=== PATIENT | male | born 1940 | race Caucasian/White ===

== ENCOUNTER 2016-08-15 17:15 | Inpatient (IN) | payer OTHER ==
[2016-08-15] MEDS ORDERED: LEVAQUIN PREMIX IV 250 MG 250 MG/50 ML BAG IV SCH (18:15)
[2016-08-15 20:20] LABS: BASOPHILS % (AUTO) 0.6 % (0.2-1.0); EOSINOPHILS % (AUTO) 0.2 % (0.9-2.9); HEMATOCRIT 29.3 % (42.0-54.0); HEMOGLOBIN 9.3 g/dL (13.5-18.0); LYMPHOCYTES # (AUTO) 0.3 X10^3/uL (1.3-2.9); LYMPHOCYTES % (AUTO) 4.6 % (21.0-51.0); MEAN CORPUSCULAR HEMOGLOBIN 29.3 pg (27.0-34.0); MEAN CORPUSCULAR HGB CONC 31.9 g/dL (33.0-35.0); MEAN CORPUSCULAR VOLUME 91.8 fL (80.0-100.0); MEAN PLATELET VOLUME 8.4 fL (7.4-11.0); MONOCYTES # (AUTO) 0.2 x10^3/uL (0.3-0.8); MONOCYTES % (AUTO) 3.2 % (0.0-13.0); NEUTROPHILS # (AUTO) 6.3 x10^3/uL (2.2-4.8); NEUTROPHILS % (AUTO) 91.4 % (42.0-75.0); PLATELET COUNT 184 X10^3/uL (150.0-450.0); RED BLOOD COUNT 3.19 X10^6/uL (4.7-6.0); RED CELL DISTRIBUTION WIDTH 19.5 % (11.6-16.5); WHITE BLOOD COUNT 6.9 X10^3/uL (3.6-10.0)
[2016-08-15 20:22] LABS: CALCIUM 8.8 mg/dL (8.5-10.1); CARBON DIOXIDE 39.3 mmol/L (21-32); CREATININE 2.78 mg/dL (0.70-1.30)
--- NOTE | 2016-08-15 21:00 | RAD ---
HISTORY: COPD Study: Portable AP chest Comparison: 06/13/2016 Findings: The trachea is midline. The cardiac silhouette is unremarkable. The pulmonary vessels are slightly ill-defined and engorged centrally and more prominent . The lungs are hypoinflated and there is haz y perihilar and bibasilar interstitial prominence which has increased. No effusion or large consolid ation is seen. IMPRESSION: Hypoinflation with mild pulmonary edema which is more prominent. Reported By:
[2016-08-15 21:03] LABS: ANISOCYTOSIS 1+; BAND NEUTROPHILS % 10 % (0-10); HYPOCHROMASIA SLIGHT; PLATELET MORPHOLOGY COMMENT NORMAL (NORMAL)
[2016-08-15] MEDS ORDERED: LANTISEPTIC TOP PRN (21:33)
[2016-08-15] MEDS ORDERED: SYNTHROID 125 mcg TAB PO SCH (22:00)
[2016-08-15] MEDS: DUONEB 0.5 MG/3 MG NEB SCH (22:00)
[2016-08-15 22:10] LABS: ABG BASE EXCESS 16.9 mmol/L (-2.0-2.0)
[2016-08-15 22:11] LABS: ABG HCO3 44.8 mmol/L (22-26); FRACTIONATED INSPIRED OXYGEN 30
[2016-08-15] MEDS: NS 500 ML IV 500 ML IV SCH (22:24)
[2016-08-15] MEDS: BUTT CREAM (COMPOUND) TOP PRN (22:33)
[2016-08-15 23:15] LABS: BILIRUBIN,URINE NEGATIVE (NEGATIVE); BLOOD/HEMOGLOBIN,URINE NEGATIVE (NEGATIVE); GLUCOSE, URINE NEGATIVE (NEGATIVE); KETONES,URINE NEGATIVE (NEGATIVE); LEUKOCYTE ESTERASE ,URINE NEGATIVE (NEGATIVE); NITRITES,URINE NEGATIVE (NEGATIVE); PROTEIN,URINE 1+ (NEGATIVE); UROBILINOGEN,URINE NORMAL (NORMAL)
[2016-08-15 23:21] VITALS: BMI 22.4
[2016-08-15 23:29] LABS: AMORPHOUS SEDIMENT,UR 1+ /HPF (NEGATIVE); APPEARANCE,URINE CLEAR (CLEAR); BACTERIA,URINE TRACE /HPF (NEGATIVE); COLOR,URINE YELLOW (YELLOW); RBC,URINE 0-3 /HPF (NEGATIVE); SQUAMOUS EPITHELIAL CELL,UR RARE /HPF (NEGATIVE)
[2016-08-16] MEDS: DUONEB 0.5 MG/3 MG NEB SCH ×6 (01:42→21:23)
[2016-08-16 06:23] LABS: BASOPHILS % (AUTO) 0.6 % (0.2-1.0); EOSINOPHILS # (AUTO) 0.1 x10^3/uL (0.0-0.2); EOSINOPHILS % (AUTO) 1.5 % (0.9-2.9); HEMATOCRIT 26.8 % (42.0-54.0); HEMOGLOBIN 8.7 g/dL (13.5-18.0); LYMPHOCYTES # (AUTO) 0.7 X10^3/uL (1.3-2.9); LYMPHOCYTES % (AUTO) 10.7 % (21.0-51.0); MEAN CORPUSCULAR HEMOGLOBIN 29.7 pg (27.0-34.0); MEAN CORPUSCULAR HGB CONC 32.7 g/dL (33.0-35.0); MEAN CORPUSCULAR VOLUME 90.8 fL (80.0-100.0); MEAN PLATELET VOLUME 8.9 fL (7.4-11.0); MONOCYTES # (AUTO) 0.7 x10^3/uL (0.3-0.8); MONOCYTES % (AUTO) 10.8 % (0.0-13.0); NEUTROPHILS # (AUTO) 4.9 x10^3/uL (2.2-4.8); NEUTROPHILS % (AUTO) 76.4 % (42.0-75.0); PLATELET COUNT 184 X10^3/uL (150.0-450.0); RED BLOOD COUNT 2.95 X10^6/uL (4.7-6.0); RED CELL DISTRIBUTION WIDTH 19.8 % (11.6-16.5); WHITE BLOOD COUNT 6.5 X10^3/uL (3.6-10.0)
[2016-08-16 06:35] LABS: BLOOD UREA NITROGEN 100 mg/dL (7-18); CALCIUM 8.8 mg/dL (8.5-10.1); CARBON DIOXIDE 37.6 mmol/L (21-32); CHLORIDE 106 mmol/L (98-107); CREATININE 2.85 mg/dL (0.70-1.30); GLUCOSE 109 mg/dL (65-99); SODIUM 149 mmol/L (136-145); eGFR BLACK RACES 28 (>60); eGFR NON BLACK RACES 23 (>60)
--- NOTE | 2016-08-16 07:56 | RAD ---
Chest AP portable Indication: Acute respiratory failure. Comparison: Previous day's radiograph. Findings: There is cardiomegaly with patchy pulmonary opacities in the left midlung and lower lobes. No pneumothorax seen. Small effusions may be present. Impression: Findings suggest CHF, similar to the prior. Developing pneumonia is possible. Followup t o resolution. Reported By:
[2016-08-16] MEDS: BUTT CREAM (COMPOUND) TOP PRN ×3 (08:30→14:10)
[2016-08-16] MEDS ORDERED: [UNRECOGNIZED DRUG - OTHER] PO PRN (10:19)
[2016-08-16] MEDS ORDERED: LIDODERM 5% PATCH TD PRN (10:19)
[2016-08-16] MEDS ORDERED: TOBREX DROPS EACHEYE PRN (10:19)
[2016-08-16] MEDS ORDERED: MILK OF MAGNESIA PEG PRN (10:19)
[2016-08-16] MEDS ORDERED: LANTISEPTIC TOP PRN (10:19)
[2016-08-16] MEDS ORDERED: INSULIN DETEMIR SUBCUT SCH (10:30)
[2016-08-16] MEDS ORDERED: [UNRECOGNIZED DRUG - REMARK] ENOSTRIL SCH (10:30)
[2016-08-16] MEDS ORDERED: LACTINEX GRANULES PEG SCH (11:00)
[2016-08-16] MEDS ORDERED: LEVEMIR SC SCH (11:00)
[2016-08-16] MEDS ORDERED: NS 1/2 1000 ML IV 1,000 ML IV SCH (11:00)
[2016-08-16] MEDS ORDERED: PREDNISONE TAB 20 MG PO SCH (11:00)
[2016-08-16] MEDS ORDERED: MERREM VIAL 500 MG in NS 100 ML IV + SPIKE MINIBAG* 100 ML IV SCH ×4 (11:00)
[2016-08-16] MEDS: PREDNISONE TAB 5 MG PO SCH (11:27)
[2016-08-16] MEDS: NICODERM PATCH 21 MG/24 HR TD SCH (11:28)
[2016-08-16] MEDS: SOLU-Medrol 40 MG VIAL IVP SCH ×3 (11:28→23:00)
[2016-08-16] MEDS: LASIX IVP SCH ×2 (11:28→22:48)
[2016-08-16] MEDS: PEPCID TAB 20 MG PEG SCH (11:28)
[2016-08-16] MEDS: PROSCAR PO SCH (11:28)
[2016-08-16] MEDS: [UNRECOGNIZED DRUG - OTHER] PEG SCH ×2 (11:29→22:52)
[2016-08-16] MEDS: DIFLUCAN PEG SCH (11:30)
[2016-08-16] MEDS: BACTROBAN CREAM TOP SCH ×2 (11:30→22:50)
[2016-08-16] MEDS: ASPIRIN EC 81 MG PO SCH (11:30)
[2016-08-16] MEDS ORDERED: NS 1/2 1000 ML IV 1,000 ML IV ONE (11:32)
[2016-08-16] MEDS ORDERED: MAXIPIME IV ONE (12:04)
[2016-08-16] MEDS ORDERED: NS IV ONE (12:04)
[2016-08-16] MEDS: CHECK PATCH XX SCH ×2 (12:20→22:50)
[2016-08-16] MEDS ORDERED: MAXIPIME VIAL 1 GM ONE (12:33)
[2016-08-16] MEDS ORDERED: NS 50 ML IV 50 ML IV ONE (12:35)
--- NOTE | 2016-08-16 15:28 | DR.H&P ---
H&P - History & Physical for Day of: H&P Date: 08/15/16 - Chief Complaint Chief Complaint: AMS, SOB - Allergies Allergies/Adverse Reactions: Allergies Allergy/AdvReac Type Severity Reaction Status Date / Time Budesonide [From Symbicort] Allergy Verified 04/11/16 13:00 Cefdinir Allergy Verified 04/11/16 13:00 Celecoxib [From Celebrex] Allergy Verified 04/11/16 13:00 Erythromycin Allergy Verified 04/11/16 13:00 Finasteride [From Proscar] Allergy Verified 04/11/16 13:00 Formoterol [From Symbicort] Allergy Verified 04/11/16 13:00 Glimepiride [From Amaryl] Allergy Verified 04/11/16 13:00 Hydroxychloroquine Allergy Verified 04/11/16 13:00 [From Plaquenil] Hyoscyamine [From Uroblue] Allergy Verified 04/11/16 13:00 Immune Globulin Allergy Verified 04/11/16 13:00 [From Gammagard] Leflunomide [From Arava] Allergy Verified 04/11/16 13:00 Lidocaine Allergy Verified 04/11/16 13:03 Losartan Allergy Verified 04/11/16 13:00 Methenamine [From Uroblue] Allergy Verified 04/11/16 13:00 Minocycline Allergy Verified 04/11/16 13:00 Penicillins Allergy Verified 04/11/16 13:00 Phenylsalicylate Allergy Verified 04/11/16 13:00 [From Uroblue] Pregabalin [From Lyrica] Allergy Verified 04/11/16 13:00 Pseudoephedrine Allergy Verified 04/11/16 13:00 Rofecoxib [From Vioxx] Allergy Verified 04/11/16 13:00 Sertraline [From Zoloft] Allergy Verified 04/11/16 13:00 Sodium Phosphate Allergy Verified 04/11/16 13:00 [From Uroblue] Spironolactone Allergy Verified 04/11/16 13:00 Sulfa Antibiotics Allergy Verified 04/11/16 13:00 - History of Present Illness History of Present Illness: PPATIENT IS A 76-YEAR-OLD WHITE MALE WHO WAS A DIRECT ADMIT FROM [facility]. 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 pATIENT IS BEDBOUND AND TOTAL CARE WITH RECURRING RESPIRATORY INFECTIONS. pATIENT'S SPOUSE STATED HE HAD DECREASED MENTAL STATUS AND INCREASED RESPIRATORY DISTRESS WORSENING OVER THE LAST 24 HOURS. pLAN TO ADMIT TO icu FOR FURTHER EVALUATION OF INCREASED SHORTNESS OF BREATH, CHEST CONGESTION, RESPIRATORY DISTRESS, ALTERED MENTAL STATUS - Past Medical History Past Medical History: Arthritis, Hypertension, Renal Disease Additional Medical History: demyelinating neurological disorder - Past Surgical History Surgical History: Cholecystectomy, Joint Replacement, Ortho Surgery Additional Surgical History: PEG Tube - Family History Family Medical History: Diabetes Mellitus, NE, Sudden Cardiac - Social History Does patient currently use any type of tobacco product: No Have you used tobacco products in the last 12 months: No Type of Tobacco Use: None Does any household member use tobacco: No Alcohol Use: None - Medications Home Medications: Famotidine [Famotidine 20 mg] 20 mg PEG DAILY 08/15/16 [History Confirmed ] Furosemide [Lasix] 40 mg PO BID 08/15/16 [History Confirmed 08/15/16] Levothyroxine Sodium [SYNTHROID 125 mcg *] 125 mcg PEG DAILY 08/15/16 [History Confirmed 08/16/16] Skin Protectants, Misc. [LANTISEPTIC OINT *] 1 applic TOP DAILY PRN 08/15/16 [ History Confirmed 08/15/16] Aspirin [[place] Low Dose] 81 mg PO DAILY 08/16/16 [History Confirmed 08/16/16] Fluconazole [Diflucan] 100 mg PEG DAILY 08/16/16 [History Confirmed 08/15/16] Mouthwashes [Biotene Dry Mouth Mouthwa] 1 applic PO PRN PRN 08/16/16 [History Confirmed 08/16/16] Potassium Chloride Liq [POTASSIUM CHLORIDE LIQ 20 mEQ/15 mL *] 20 meq PEG DAILY PRN 08/16/16 [History Confirmed 08/16/16] Scopolamine [TRANSDERM-SCOP PATCH - Do NOT cut *] 1 patch TD .Q 72 HRS 08/16/16 [History Confirmed 08/16/16] - Review of Systems Constitutional: Weakness Eyes: No Symptoms Reported ENT: No Symptoms Reported Respiratory: Cough, Shortness of Breath, Sputum Cardiovascular: No Symptoms Reported Gastrointestinal: No Symptoms Reported, Other (jg tube) Musculoskeletal: No Symptoms Reported Skin: Bruising (multiple scattered bruising to upper arms) Neurological: Weakness - Physical Exam Vital Signs: Temperature 97.0 F Pulse Rate [Apical] 87 Pulse Rate 89 Respiratory Rate 28 Blood Pressure [Left Calf] 88/42 Blood Pressure [Right Calf] 109/72 Blood Pressure [Left Arm] 90/71 Blood Pressure [Right Arm] 108/55 Blood Pressure 90/71 O2 Sat by Pulse Oximetry 95 Oriented: Person Eyes: Normal Ear: Normal Nose: Normal Throat: Normal Respiratory: Diminished Throughout Cardiovascular: Normal : Normal Auscultation: Bowel Sounds: Normal Palpation: Normal Tenderness: Normal Skin: Decreased Turgur Musculoskeletal: Normal Speech Pattern: Aphasic - Assessment/Plan (1) Respiratory distress Status: Acute Plan: ADMIT, IV HYDRATION, IV LASIX, RESP THERAPY. EKG MONTORING. 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
[2016-08-16] MEDS ORDERED: SYNTHROID 112 mcg TAB PO SCH (16:30)
[2016-08-16] MEDS: SYNTHROID 125 mcg TAB PEG SCH ×2 (21:35→22:52)
[2016-08-17] MEDS: DUONEB 0.5 MG/3 MG NEB SCH ×6 (01:09→20:36)
[2016-08-17] MEDS: SOLU-Medrol 40 MG VIAL IVP SCH ×3 (02:16→17:04)
[2016-08-17] MEDS: NS 500 ML IV 500 ML IV SCH (02:17)
[2016-08-17 06:03] LABS: BASOPHILS % (AUTO) 0.5 % (0.2-1.0); EOSINOPHILS # (AUTO) 0.1 x10^3/uL (0.0-0.2); EOSINOPHILS % (AUTO) 1.4 % (0.9-2.9); HEMATOCRIT 25.5 % (42.0-54.0); HEMOGLOBIN 8.5 g/dL (13.5-18.0); LYMPHOCYTES # (AUTO) 0.5 X10^3/uL (1.3-2.9); LYMPHOCYTES % (AUTO) 6.4 % (21.0-51.0); MEAN CORPUSCULAR HEMOGLOBIN 30.5 pg (27.0-34.0); MEAN CORPUSCULAR HGB CONC 33.1 g/dL (33.0-35.0); MEAN PLATELET VOLUME 8.7 fL (7.4-11.0); MONOCYTES # (AUTO) 0.7 x10^3/uL (0.3-0.8); MONOCYTES % (AUTO) 8.5 % (0.0-13.0); NEUTROPHILS # (AUTO) 6.7 x10^3/uL (2.2-4.8); NEUTROPHILS % (AUTO) 83.2 % (42.0-75.0); PLATELET COUNT 185 X10^3/uL (150.0-450.0); RED BLOOD COUNT 2.78 X10^6/uL (4.7-6.0); RED CELL DISTRIBUTION WIDTH 19.6 % (11.6-16.5); WHITE BLOOD COUNT 8.1 X10^3/uL (3.6-10.0)
[2016-08-17 06:06] LABS: ALBUMIN 2.4 g/dL (3.4-5.0); CALCIUM 8.7 mg/dL (8.5-10.1); CARBON DIOXIDE 34.1 mmol/L (21-32); CREATININE 3.03 mg/dL (0.70-1.30); TOTAL PROTEIN 6.9 g/dL (6.4-8.2)
--- NOTE | 2016-08-17 07:48 | RAD ---
HISTORY: CHF, pneumonia Study: Single-view chest Comparison: August 16, 2016 Findings: The trachea is midline. The cardiac silhouette is enlarged in size. There has been no significant change and central pulmonary vascular congestion. Increased interstitial markings bilaterally could reflect mild interstitial edema. There is suggestion of small volume bibasilar pleural effusions as well. A developing left basilar infiltrate is suspected and not significantly changed from prior exa m. The bony thorax is grossly intact. IMPRESSION: 1. Unchanged appearance of the chest as above Reported By:
[2016-08-17] MEDS: LASIX IVP SCH (08:40)
[2016-08-17] MEDS: PREDNISONE TAB 5 MG PO SCH (08:40)
[2016-08-17] MEDS: NICODERM PATCH 21 MG/24 HR TD SCH (08:41)
[2016-08-17] MEDS: PEPCID TAB 20 MG PEG SCH (08:41)
[2016-08-17] MEDS: PROSCAR PO SCH (08:41)
[2016-08-17] MEDS: ASPIRIN EC 81 MG PO SCH (09:19)
[2016-08-17] MEDS: DIFLUCAN PEG SCH (09:20)
[2016-08-17] MEDS: [UNRECOGNIZED DRUG - OTHER] PEG SCH (09:20)
[2016-08-17] MEDS: BACTROBAN CREAM TOP SCH ×2 (09:20→21:00)
[2016-08-17] MEDS: CHECK PATCH XX SCH ×2 (11:49→21:00)
[2016-08-17] MEDS: LACTINEX GRANULES PEG SCH (15:57)
[2016-08-17] MEDS ORDERED: NS 1000 ML 1,000 ML ONE (17:55)
[2016-08-17] MEDS ORDERED: NS 1000 ML 1,000 ML IV SCH ×2 (18:00→19:00)
[2016-08-17] MEDS: SYNTHROID 125 mcg TAB PEG SCH (18:31)
[2016-08-17] MEDS ORDERED: NS 1000 ML 1,000 ML IV ONE (19:00)
[2016-08-17] MEDS: NS IV SCH (19:42)
[2016-08-17] MEDS: MAXIPIME IV SCH (19:42)
[2016-08-17] MEDS: LEVAQUIN PREMIX IV 250 MG 250 MG/50 ML BAG IV SCH (19:44)
[2016-08-17] MEDS: LEVEMIR SC SCH (20:35)
[2016-08-17] MEDS ORDERED: MAXIPIME VIAL 1 GM IV SCH (21:00)
[2016-08-18] MEDS: SOLU-Medrol 40 MG VIAL IVP SCH ×3 (01:09→18:19)
[2016-08-18] MEDS: TRANSDERM-SCOP TD SCH (01:09)
[2016-08-18] MEDS: DUONEB 0.5 MG/3 MG NEB SCH ×6 (01:13→21:58)
[2016-08-18 06:51] LABS: BASOPHILS % (AUTO) 0.4 % (0.2-1.0); EOSINOPHILS # (AUTO) 0.2 x10^3/uL (0.0-0.2); EOSINOPHILS % (AUTO) 2.8 % (0.9-2.9); HEMATOCRIT 25.3 % (42.0-54.0); HEMOGLOBIN 8.1 g/dL (13.5-18.0); LYMPHOCYTES # (AUTO) 0.6 X10^3/uL (1.3-2.9); LYMPHOCYTES % (AUTO) 9.3 % (21.0-51.0); MEAN CORPUSCULAR HEMOGLOBIN 29.5 pg (27.0-34.0); MEAN CORPUSCULAR VOLUME 92.1 fL (80.0-100.0); MEAN PLATELET VOLUME 8.5 fL (7.4-11.0); MONOCYTES # (AUTO) 0.6 x10^3/uL (0.3-0.8); MONOCYTES % (AUTO) 9.5 % (0.0-13.0); NEUTROPHILS # (AUTO) 5.1 x10^3/uL (2.2-4.8); PLATELET COUNT 183 X10^3/uL (150.0-450.0); RED BLOOD COUNT 2.75 X10^6/uL (4.7-6.0); RED CELL DISTRIBUTION WIDTH 19.7 % (11.6-16.5); WHITE BLOOD COUNT 6.5 X10^3/uL (3.6-10.0)
[2016-08-18 06:52] LABS: ALANINE AMINOTRANSFERASE 66 Units/L (12-78); ALBUMIN 2.4 g/dL (3.4-5.0); ALKALINE PHOSPHATASE 260 Units/L (46-116); ASPARTATE AMINO TRANSFERASE 28 Units/L (15-37); BLOOD UREA NITROGEN 99 mg/dL (7-18); CALCIUM 8.5 mg/dL (8.5-10.1); CARBON DIOXIDE 37.7 mmol/L (21-32); CHLORIDE 110 mmol/L (98-107); COR CA(FOR HYPOALB) 9.8 mg/dL (8.5-10.1); CREATININE 2.85 mg/dL (0.70-1.30); GLUCOSE 100 mg/dL (65-99); TOTAL PROTEIN 6.9 g/dL (6.4-8.2); eGFR BLACK RACES 28 (>60); eGFR NON BLACK RACES 23 (>60)
[2016-08-18 07:15] LABS: SODIUM 154 mmol/L (136-145)
--- NOTE | 2016-08-18 09:32 | RAD ---
HISTORY: Chest pain Study: Single view chest. Comparison: 08/17/2016. Findings: The trachea is midline. The cardiac silhouette remains enlarged. There is unchanged, patchy, airspac e disease in the lung bases which could reflect pneumonia; right greater than left. Background palmer es of chronic bronchitis/interstitial densities are observed. The bones are unchanged. There is no p neumothorax or other cardiopulmonary change appreciated. IMPRESSION: 1. Unchanged, patchy, right greater than left lower lobe/lung base airspace disease with background changes of bronchitis. Findings could certainly reflect pneumonia. Reported By:
[2016-08-18] MEDS: NICODERM PATCH 21 MG/24 HR TD SCH (09:36)
[2016-08-18] MEDS: PREDNISONE TAB 5 MG PO SCH (09:36)
[2016-08-18] MEDS: PEPCID TAB 20 MG PEG SCH (09:36)
[2016-08-18] MEDS: PROSCAR PO SCH (09:36)
[2016-08-18] MEDS: CHECK PATCH XX SCH ×2 (09:37→20:44)
[2016-08-18] MEDS: BACTROBAN CREAM TOP SCH ×2 (09:38→20:43)
[2016-08-18] MEDS: LACTINEX GRANULES PEG SCH (16:04)
[2016-08-18] MEDS: SYNTHROID 125 mcg TAB PEG SCH (18:17)
[2016-08-18] MEDS: MAXIPIME IV SCH (18:22)
[2016-08-18] MEDS: NS IV SCH (18:22)
[2016-08-18] MEDS: LEVEMIR SC SCH (21:00)
[2016-08-19] MEDS: SOLU-Medrol 40 MG VIAL IVP SCH ×2 (01:00→10:00)
[2016-08-19] MEDS: DUONEB 0.5 MG/3 MG NEB SCH ×6 (01:45→21:43)
[2016-08-19 06:30] LABS: BASOPHILS # (AUTO) 0.1 X10^3/uL (0.0-0.1); BASOPHILS % (AUTO) 0.5 % (0.2-1.0); EOSINOPHILS # (AUTO) 0.2 x10^3/uL (0.0-0.2); EOSINOPHILS % (AUTO) 2.1 % (0.9-2.9); HEMATOCRIT 26.6 % (42.0-54.0); HEMOGLOBIN 8.6 g/dL (13.5-18.0); LYMPHOCYTES # (AUTO) 0.5 X10^3/uL (1.3-2.9); LYMPHOCYTES % (AUTO) 5.2 % (21.0-51.0); MEAN CORPUSCULAR HEMOGLOBIN 29.7 pg (27.0-34.0); MEAN CORPUSCULAR HGB CONC 32.4 g/dL (33.0-35.0); MEAN CORPUSCULAR VOLUME 91.7 fL (80.0-100.0); MEAN PLATELET VOLUME 8.3 fL (7.4-11.0); MONOCYTES # (AUTO) 0.9 x10^3/uL (0.3-0.8); NEUTROPHILS # (AUTO) 7.9 x10^3/uL (2.2-4.8); NEUTROPHILS % (AUTO) 83.2 % (42.0-75.0); PLATELET COUNT 194 X10^3/uL (150.0-450.0); RED BLOOD COUNT 2.91 X10^6/uL (4.7-6.0); RED CELL DISTRIBUTION WIDTH 19.2 % (11.6-16.5); WHITE BLOOD COUNT 9.5 X10^3/uL (3.6-10.0)
[2016-08-19 06:44] LABS: ALBUMIN 2.4 g/dL (3.4-5.0); CALCIUM 8.7 mg/dL (8.5-10.1); CARBON DIOXIDE 34.6 mmol/L (21-32); CREATININE 2.63 mg/dL (0.70-1.30); TOTAL PROTEIN 6.9 g/dL (6.4-8.2)
[2016-08-19] MEDS: NICODERM PATCH 21 MG/24 HR TD SCH (09:56)
[2016-08-19] MEDS: CHECK PATCH XX SCH ×2 (09:57→21:00)
[2016-08-19] MEDS: PEPCID TAB 20 MG PEG SCH (09:57)
[2016-08-19] MEDS: BACTROBAN CREAM TOP SCH ×2 (09:57→21:00)
[2016-08-19] MEDS: PREDNISONE TAB 5 MG PO SCH (09:58)
[2016-08-19] MEDS: PROSCAR PO SCH (09:59)
--- NOTE | 2016-08-19 10:27 | RAD ---
HISTORY: Congestion Study: Single-view chest Comparison: August 18, 2016 Findings: Patient is rotated towards the right. Trachea is midline heart size is difficult to assess but is li mimi normal. There is aortic uncoiling. Changing pattern of increased interstitial markings is seen compared to the prior studies. While these have decreased in the right lung base, these have increas ed in the left lung base. No dense consolidation, pleural fluid or pneumothorax is seen. No acute os seous abnormalities are identified. IMPRESSION: Changing pattern of interstitial lung disease without overall improvement. Please see above. Reported By:
[2016-08-19] MEDS: LACTINEX GRANULES PEG SCH (16:21)
[2016-08-19] MEDS ORDERED: NS 250 ML IV 250 ML IV ONE (17:55)
[2016-08-19] MEDS: SYNTHROID 125 mcg TAB PEG SCH (17:57)
[2016-08-19] MEDS: SNACK - Diabetic Appropriate PO SCH (20:00)
[2016-08-19] MEDS: LEVAQUIN PREMIX IV 250 MG 250 MG/50 ML BAG IV SCH (20:47)
[2016-08-19] MEDS: MAXIPIME IV SCH (20:47)
[2016-08-19] MEDS: NS IV SCH (20:47)
[2016-08-19] MEDS: LEVEMIR SC SCH (20:48)
[2016-08-20] MEDS: DUONEB 0.5 MG/3 MG NEB SCH ×6 (01:06→21:11)
[2016-08-20 06:19] LABS: ALANINE AMINOTRANSFERASE 59 Units/L (12-78); ALBUMIN 2.3 g/dL (3.4-5.0); ALKALINE PHOSPHATASE 242 Units/L (46-116); ASPARTATE AMINO TRANSFERASE 36 Units/L (15-37); BLOOD UREA NITROGEN 94 mg/dL (7-18); CALCIUM 8.6 mg/dL (8.5-10.1); CHLORIDE 113 mmol/L (98-107); CREATININE 2.46 mg/dL (0.70-1.30); GLUCOSE 104 mg/dL (65-99); TOTAL PROTEIN 6.6 g/dL (6.4-8.2); eGFR BLACK RACES 33 (>60); eGFR NON BLACK RACES 27 (>60)
[2016-08-20 06:21] LABS: BASOPHILS % (AUTO) 0.5 % (0.2-1.0); EOSINOPHILS # (AUTO) 0.2 x10^3/uL (0.0-0.2); EOSINOPHILS % (AUTO) 2.5 % (0.9-2.9); HEMATOCRIT 24.6 % (42.0-54.0); LYMPHOCYTES # (AUTO) 0.6 X10^3/uL (1.3-2.9); LYMPHOCYTES % (AUTO) 7.3 % (21.0-51.0); MEAN CORPUSCULAR HEMOGLOBIN 29.9 pg (27.0-34.0); MEAN CORPUSCULAR HGB CONC 32.4 g/dL (33.0-35.0); MEAN CORPUSCULAR VOLUME 92.2 fL (80.0-100.0); MEAN PLATELET VOLUME 8.4 fL (7.4-11.0); MONOCYTES # (AUTO) 0.7 x10^3/uL (0.3-0.8); MONOCYTES % (AUTO) 8.4 % (0.0-13.0); NEUTROPHILS # (AUTO) 7.1 x10^3/uL (2.2-4.8); NEUTROPHILS % (AUTO) 81.3 % (42.0-75.0); PLATELET COUNT 180 X10^3/uL (150.0-450.0); RED BLOOD COUNT 2.66 X10^6/uL (4.7-6.0); RED CELL DISTRIBUTION WIDTH 19.4 % (11.6-16.5); WHITE BLOOD COUNT 8.8 X10^3/uL (3.6-10.0)
[2016-08-20 06:35] LABS: SODIUM 153 mmol/L (136-145)
--- NOTE | 2016-08-20 09:08 | RAD ---
HISTORY: respiratory failure Study: Portable AP chest Comparison: 08/19/2016 Findings: The heart is normal. The pulmonary vessels are less prominent centrally . The lungs are hypoinflated and there is hazy bibasilar interstitial prominence which has decreased . No effusion is seen. IMPRESSION: Resolving central pulmonary congestion and slowly resolving bibasilar interstitial opacities. Reported By:
[2016-08-20] MEDS: PEPCID TAB 20 MG PEG SCH (09:53)
[2016-08-20] MEDS: NICODERM PATCH 21 MG/24 HR TD SCH (09:53)
[2016-08-20] MEDS: PREDNISONE TAB 5 MG PO SCH (09:53)
[2016-08-20] MEDS: PROSCAR PO SCH (09:53)
[2016-08-20] MEDS: CHECK PATCH XX SCH ×2 (09:54→21:00)
[2016-08-20] MEDS: BACTROBAN CREAM TOP SCH ×2 (09:54→21:00)
--- NOTE | 2016-08-20 12:33 | PCM.PROG ---
Progress Note - Progress Note for Day of Date: 08/19/16 - Subjective Subjective: continues with cough and chest congestion, excessive secretions. improving alertness - Past Medical Family Social History Past Med/Fam/Surg Hx: No changes since H&P Allergies: Allergies Budesonide [From Symbicort] Allergy (Verified 04/11/16 13:00) Cefdinir Allergy (Verified 04/11/16 13:00) Celecoxib [From Celebrex] Allergy (Verified 04/11/16 13:00) Erythromycin Allergy (Verified 04/11/16 13:00) Finasteride [From Proscar] Allergy (Verified 04/11/16 13:00) Formoterol [From Symbicort] Allergy (Verified 04/11/16 13:00) Glimepiride [From Amaryl] Allergy (Verified 04/11/16 13:00) Hydroxychloroquine [From Plaquenil] Allergy (Verified 04/11/16 13:00) Hyoscyamine [From Uroblue] Allergy (Verified 04/11/16 13:00) Immune Globulin [From Gammagard] Allergy (Verified 04/11/16 13:00) Leflunomide [From Arava] Allergy (Verified 04/11/16 13:00) Lidocaine Allergy (Verified 04/11/16 13:03) when used in magic mouthwash Losartan Allergy (Verified 04/11/16 13:00) Methenamine [From Uroblue] Allergy (Verified 04/11/16 13:00) Minocycline Allergy (Verified 04/11/16 13:00) Penicillins Allergy (Verified 04/11/16 13:00) Phenylsalicylate [From Uroblue] Allergy (Verified 04/11/16 13:00) Pregabalin [From Lyrica] Allergy (Verified 04/11/16 13:00) Pseudoephedrine Allergy (Verified 04/11/16 13:00) Rofecoxib [From Vioxx] Allergy (Verified 04/11/16 13:00) Sertraline [From Zoloft] Allergy (Verified 04/11/16 13:00) Sodium Phosphate [From Uroblue] Allergy (Verified 04/11/16 13:00) Spironolactone Allergy (Verified 04/11/16 13:00) Sulfa Antibiotics Allergy (Verified 04/11/16 13:00) - Review of Systems ROS: No change since H&P - Vital Signs and I&O's Vital Signs: Temperature 97.3 F Pulse Rate [Apical] 97 Pulse Rate 93 Respiratory Rate 51 Blood Pressure [Left Calf] 88/42 Blood Pressure [Right Calf] 109/72 Blood Pressure [Left Arm] 90/71 Blood Pressure [Right Arm] 98/61 Blood Pressure 90/71 O2 Sat by Pulse Oximetry 95 Intake and Output: Intake & Output 08/18/16 08/19/16 08/20/16 08/21/16 11:59 11:59 11:59 11:59 Intake Total 1096 1193 937 Balance 1096 1193 937 - Physical Exam Oriented: Person Eyes: Normal Ear: Normal Nose: Normal Throat: Normal Respiratory: Diminished, Rhonchi Cardiovascular: Normal : Normal Auscultation: Bowel Sounds: Normal Tenderness: Normal Skin: Decreased Turgur Musculoskeletal: Normal, Motor Deficit (diffuse muscle weakness), Sensory Deficit Speech Pattern: Clear, Appropriate - Laboratory and Diagnostics Result Diagrams: 08/20/16 05:00 08/20/16 05:00 Labs: 08/15/16 20:00 Blood Blood Culture - Final 08/16/16 08:23 Urine,Clean Catch Urine Culture - Final Laboratory WBC 8.8 X10^3/uL (3.6-10.0) 08/20/16 05:00 RBC 2.66 X10^6/uL (4.7-6.0) L 08/20/16 05:00 Hgb 8.0 g/dL (13.5-18.0) L 08/20/16 05:00 Hct 24.6 % (42.0-54.0) L 08/20/16 05:00 MCV 92.2 fL (80.0-100.0) 08/20/16 05:00 MCH 29.9 pg (27.0-34.0) 08/20/16 05:00 MCHC 32.4 g/dL (33.0-35.0) L 08/20/16 05:00 RDW 19.4 % (11.6-16.5) H 08/20/16 05:00 Plt Count 180 X10^3/uL (150.0-450.0) 08/20/16 05:00 Plt Count Comment Adequate (ADEQUATE) 08/15/16 20:00 MPV 8.4 fL (7.4-11.0) 08/20/16 05:00 Neut % 81.3 % (42.0-75.0) H 08/20/16 05:00 Lymph % 7.3 % (21.0-51.0) L 08/20/16 05:00 Weld % 8.4 % (0.0-13.0) 08/20/16 05:00 Eos % 2.5 % (0.9-2.9) 08/20/16 05:00 Baso % 0.5 % (0.2-1.0) 08/20/16 05:00 Neut # 7.1 x10^3/uL (2.2-4.8) H 08/20/16 05:00 Lymph # 0.6 X10^3/uL (1.3-2.9) L 08/20/16 05:00 Weld # 0.7 x10^3/uL (0.3-0.8) 08/20/16 05:00 Eos # 0.2 x10^3/uL (0.0-0.2) 08/20/16 05:00 Baso # 0.0 X10^3/uL (0.0-0.1) 08/20/16 05:00 Absolute Nucleated RBC 0.2 /100WBC 08/20/16 05:00 Total Counted 100 08/15/16 20:00 Neutrophils % (Manual) 81 % (39-76) H 08/15/16 20:00 Band Neutrophils % 10 % (0-10) 08/15/16 20:00 Lymphocytes % (Manual) 3 % (13-43) L 08/15/16 20:00 Monocytes % (Manual) 1 % (4-9) L 08/15/16 20:00 Atypical Lymphocytes 5 08/15/16 20:00 Plt Morphology Comment Normal (NORMAL) 08/15/16 20:00 RBC Morphology Abnormal (NORMAL) 08/15/16 20:00 Hypochromasia Slight A 08/15/16 20:00 Anisocytosis 1+ A 08/15/16 20:00 Sample Site Rb 08/15/16 22:03 ABG pH 7.420 (7.35-7.45) 08/15/16 22:03 ABG pCO2 69.0 mmHg (35.0-45.0) H* 08/15/16 22:03 ABG pO2 110.0 mmHg (80.0-100.0) H 08/15/16 22:03 ABG HCO3 44.8 mmol/L (22-26) H* 08/15/16 22:03 ABG O2 Saturation 98.0 % (90-100) 08/15/16 22:03 ABG Base Excess 16.9 mmol/L (-2.0-2.0) H 08/15/16 22:03 Mariano Test N/a 08/15/16 22:03 A-a Gradient 18.0 mmHg 08/15/16 22:03 FiO2 30 08/15/16 22:03 Blood Gas Comments Dhara well ae 08/15/16 22:03 Sodium 153 mmol/L (136-145) H* 08/20/16 05:00 Corrected Sodium TNP 08/20/16 05:00 Potassium 4.3 mmol/L (3.5-5.1) 08/20/16 05:00 Chloride 113 mmol/L (98-107) H 08/20/16 05:00 Carbon Dioxide 35.0 mmol/L (21-32) H 08/20/16 05:00 BUN 94 mg/dL (7-18) H 08/20/16 05:00 Creatinine 2.46 mg/dL (0.70-1.30) H 08/20/16 05:00 Est GFR (MDRD) Af Amer 33 (>60) L 08/20/16 05:00 Est GFR (MDRD) Non-Af 27 (>60) L 08/20/16 05:00 Glucose 104 mg/dL (65-99) H 08/20/16 05:00 Calcium 8.6 mg/dL (8.5-10.1) 08/20/16 05:00 Corrected Calcium 10.0 mg/dL (8.5-10.1) 08/20/16 05:00 Total Bilirubin 0.40 mg/dL (0.2-1.0) 08/20/16 05:00 AST 36 Units/L (15-37) 08/20/16 05:00 ALT 59 Units/L (12-78) 08/20/16 05:00 Alkaline Phosphatase 242 Units/L (46-116) H 08/20/16 05:00 Total Protein 6.6 g/dL (6.4-8.2) 08/20/16 05:00 Albumin 2.3 g/dL (3.4-5.0) L 08/20/16 05:00 Globulin 4.3 g/dL (2.5-4.5) 08/20/16 05:00 Albumin/Globulin Ratio 0.5 Ratio (1.1-2.1) L 08/20/16 05:00 Specimen Type Clean catch urine 08/15/16 22:46 Urine Color Yellow (YELLOW) 08/15/16 22:46 Urine Appearance Clear (CLEAR) 08/15/16 22:46 Urine pH 5.0 (5.0 - 8.0) 08/15/16 22:46 Ur Specific [place] 1.015 (1.000-1.030) 08/15/16 22:46 Urine Protein 1+ (NEGATIVE) 08/15/16 22:46 Urine Glucose (UA) Negative (NEGATIVE) 08/15/16 22:46 Urine Ketones Negative (NEGATIVE) 08/15/16 22:46 Urine Occult Blood Negative (NEGATIVE) 08/15/16 22:46 Urine Nitrite Negative (NEGATIVE) 08/15/16 22:46 Urine Bilirubin Negative (NEGATIVE) 08/15/16 22:46 Urine Urobilinogen Normal (NORMAL) 08/15/16 22:46 Ur Leukocyte Esterase Negative (NEGATIVE) 08/15/16 22:46 Urine RBC 0-3 /HPF (NEGATIVE) 08/15/16 22:46 Urine WBC 0-3 /HPF (NEGATIVE) 08/15/16 22:46 Ur Squamous Epith Cells Rare /HPF (NEGATIVE) 08/15/16 22:46 Amorphous Sediment 1+ /HPF (NEGATIVE) 08/15/16 22:46 Urine Bacteria Trace /HPF (NEGATIVE) 08/15/16 22:46 Ur Culture Indicated? No/not indicated 08/15/16 22:46 Blood Type A POSITIVE 08/20/16 10:25 Antibody Screen Negative 08/20/16 10:25 - Plan (1) Respiratory distress Status: Acute Plan: IV HYDRATION, IV LASIX, RESP THERAPY. EKG MONTORING. REPEAT AM LABS, BS CONTROL, RESP CONSULT (2) CHF (congestive heart failure) Status: Chronic Qualifiers: Congestive heart failure type: C Congestive heart failure chronicity: C Plan: strict i & os. 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
[2016-08-20] MEDS: LACTINEX GRANULES PEG SCH (15:19)
[2016-08-20] MEDS ORDERED: NS 250 ML IV 250 ML IV ONE (17:37)
[2016-08-20] MEDS: SYNTHROID 125 mcg TAB PEG SCH (18:37)
[2016-08-20] MEDS: SNACK - Diabetic Appropriate PO SCH (20:00)
[2016-08-20] MEDS: LEVEMIR SC SCH (20:41)
[2016-08-20] MEDS: NS IV SCH (21:25)
[2016-08-20] MEDS: MAXIPIME IV SCH (21:25)
[2016-08-20 23:21] LABS: HEMATOCRIT 27.5 % (42.0-54.0); HEMOGLOBIN 8.9 g/dL (13.5-18.0)
[2016-08-21] MEDS: DUONEB 0.5 MG/3 MG NEB SCH ×6 (01:05→20:44)
[2016-08-21] MEDS: TRANSDERM-SCOP TD SCH (01:25)
[2016-08-21 06:20] LABS: ALBUMIN 2.4 g/dL (3.4-5.0); BASOPHILS % (AUTO) 0.4 % (0.2-1.0); CALCIUM 8.9 mg/dL (8.5-10.1); CARBON DIOXIDE 33.9 mmol/L (21-32); COR CA(FOR HYPOALB) 10.2 mg/dL (8.5-10.1); CREATININE 2.66 mg/dL (0.70-1.30); EOSINOPHILS # (AUTO) 0.2 x10^3/uL (0.0-0.2); EOSINOPHILS % (AUTO) 1.7 % (0.9-2.9); HEMATOCRIT 29.4 % (42.0-54.0); HEMOGLOBIN 9.7 g/dL (13.5-18.0); LYMPHOCYTES # (AUTO) 0.6 X10^3/uL (1.3-2.9); LYMPHOCYTES % (AUTO) 5.9 % (21.0-51.0); MEAN CORPUSCULAR HEMOGLOBIN 29.8 pg (27.0-34.0); MEAN CORPUSCULAR HGB CONC 32.8 g/dL (33.0-35.0); MEAN CORPUSCULAR VOLUME 90.9 fL (80.0-100.0); MEAN PLATELET VOLUME 8.5 fL (7.4-11.0); MONOCYTES # (AUTO) 0.7 x10^3/uL (0.3-0.8); MONOCYTES % (AUTO) 6.9 % (0.0-13.0); NEUTROPHILS % (AUTO) 85.1 % (42.0-75.0); PLATELET COUNT 177 X10^3/uL (150.0-450.0); RED BLOOD COUNT 3.24 X10^6/uL (4.7-6.0); RED CELL DISTRIBUTION WIDTH 18.9 % (11.6-16.5); WHITE BLOOD COUNT 10.5 X10^3/uL (3.6-10.0)
[2016-08-21] MEDS: PREDNISONE TAB 5 MG PO SCH (08:50)
[2016-08-21] MEDS: PROSCAR PO SCH (08:50)
[2016-08-21] MEDS: NICODERM PATCH 21 MG/24 HR TD SCH (08:50)
[2016-08-21] MEDS: CHECK PATCH XX SCH ×2 (08:51→21:00)
[2016-08-21] MEDS: PEPCID TAB 20 MG PEG SCH (08:51)
[2016-08-21] MEDS: BACTROBAN CREAM TOP SCH ×2 (08:52→21:00)
--- NOTE | 2016-08-21 09:43 | RAD ---
HISTORY: Respiratory distress, shortness of breath Study: Portable chest Comparison: 08/20/2016 Findings: Single portable view shows low lung volumes with hazy interstitial perihilar and bibasilar opacities that are nonspecific in nature, similar to prior study. No effusion or pneumothorax. Stable cardiac and mediastinal contours. The soft tissues are intact. IMPRESSION: 1. Stable chest with low lung volumes and hazy interstitial perihilar and bibasilar opacities. Reported By:
[2016-08-21] MEDS ORDERED: LASIX IVP SCH (19:00)
[2016-08-21] MEDS: SNACK - Diabetic Appropriate PO SCH (20:00)
[2016-08-21] MEDS: LEVEMIR SC SCH (20:45)
[2016-08-21] MEDS: BUTT CREAM (COMPOUND) TOP PRN (20:50)
[2016-08-21] MEDS: LEVAQUIN PREMIX IV 250 MG 250 MG/50 ML BAG IV SCH (20:50)
[2016-08-21] MEDS: NS IV SCH (20:50)
[2016-08-21] MEDS: MAXIPIME IV SCH (20:50)
[2016-08-22] MEDS: DUONEB 0.5 MG/3 MG NEB SCH ×6 (01:16→23:31)
[2016-08-22 02:00] LABS: ABG BASE EXCESS 13.9 mmol/L (-2.0-2.0)
[2016-08-22 02:02] LABS: ABG HCO3 40.3 mmol/L (22-26)
[2016-08-22 02:03] LABS: ABG ALLEN TEST POS
[2016-08-22 06:21] LABS: ALBUMIN 2.4 g/dL (3.4-5.0); CALCIUM 8.7 mg/dL (8.5-10.1); CARBON DIOXIDE 33.6 mmol/L (21-32); CREATININE 2.69 mg/dL (0.70-1.30); TOTAL PROTEIN 6.9 g/dL (6.4-8.2)
[2016-08-22 06:28] LABS: BASOPHILS # (AUTO) 0.1 X10^3/uL (0.0-0.1); BASOPHILS % (AUTO) 0.6 % (0.2-1.0); EOSINOPHILS # (AUTO) 0.2 x10^3/uL (0.0-0.2); EOSINOPHILS % (AUTO) 2.1 % (0.9-2.9); HEMATOCRIT 28.5 % (42.0-54.0); HEMOGLOBIN 9.4 g/dL (13.5-18.0); LYMPHOCYTES # (AUTO) 0.7 X10^3/uL (1.3-2.9); LYMPHOCYTES % (AUTO) 7.3 % (21.0-51.0); MEAN CORPUSCULAR HEMOGLOBIN 30.1 pg (27.0-34.0); MEAN CORPUSCULAR HGB CONC 33.1 g/dL (33.0-35.0); MEAN CORPUSCULAR VOLUME 90.8 fL (80.0-100.0); MEAN PLATELET VOLUME 8.6 fL (7.4-11.0); MONOCYTES # (AUTO) 0.7 x10^3/uL (0.3-0.8); MONOCYTES % (AUTO) 7.3 % (0.0-13.0); NEUTROPHILS # (AUTO) 7.7 x10^3/uL (2.2-4.8); NEUTROPHILS % (AUTO) 82.7 % (42.0-75.0); PLATELET COUNT 177 X10^3/uL (150.0-450.0); RED BLOOD COUNT 3.13 X10^6/uL (4.7-6.0); RED CELL DISTRIBUTION WIDTH 18.8 % (11.6-16.5); WHITE BLOOD COUNT 9.3 X10^3/uL (3.6-10.0)
--- NOTE | 2016-08-22 08:21 | RAD ---
HISTORY: CHF, respiratory failure Study: Single view chest Comparison: 08/21/2016 Findings: Single portable view. Lung volumes are reduced. There is improved aeration of the lung bases with so me persistent mild hazy interstitial opacities seen. No pneumothorax or pleural effusion. The cardia c and mediastinal contours are within normal limits. The soft tissues are unremarkable. IMPRESSION: 1. Improved aeration of the lung bases with some mild persistent hazy interstitial opacities seen. Reported By:
[2016-08-22] MEDS: PEPCID TAB 20 MG PEG SCH (08:49)
[2016-08-22] MEDS: PROSCAR PO SCH (08:49)
[2016-08-22] MEDS: CHECK PATCH XX SCH ×2 (08:49→20:44)
[2016-08-22] MEDS: NICODERM PATCH 21 MG/24 HR TD SCH (08:49)
[2016-08-22] MEDS: PREDNISONE TAB 5 MG PO SCH (08:49)
[2016-08-22] MEDS: BACTROBAN CREAM TOP SCH ×2 (08:50→20:32)
[2016-08-22] MEDS: LACTINEX GRANULES PEG SCH (15:45)
[2016-08-22] MEDS ORDERED: NS 1/2 1000 ML IV 1,000 ML IV ONE (16:30)
[2016-08-22] MEDS: NS 1/2 1000 ML IV 1,000 ML IV SCH (16:39)
[2016-08-22] MEDS: SYNTHROID 125 mcg TAB PEG SCH (17:26)
[2016-08-22] MEDS: NS IV SCH (18:30)
[2016-08-22] MEDS: MAXIPIME IV SCH (18:30)
--- NOTE | 2016-08-22 19:05 | CT ---
CT chest without contrast Indication: Dyspnea Comparison: Radiograph performed earlier today. No prior CT available. Technique: CT images of the chest were obtained without contrast. Automatic exposure control was uti lized. Findings: No aggressive osseous lesion is seen. Images through the upper abdomen demonstrate a gastr ojejunostomy. Mild bilateral hydronephrosis is noted. The heart size is normal, without significant pericardial thickening or pericardial effusion. Dense coronary atherosclerotic calcifications are noted. The thoracic aorta is grossly unremarkable. No in trathoracic adenopathy is appreciated. There are dense infiltrates of the bilateral lower lobes with air bronchograms. There is a small rig ht-sided pleural effusion. The upper lobes are relatively clear aside from mild dependent atelectasi s. The major airways are patent. No pneumothorax. Impression: 1. Dense bilateral lower lobe infiltrates with air bronchograms, most suggestive for pneumonia, alth ough some degree of atelectasis is suspected. Small right pleural effusion. 2. Dense coronary atherosclerotic disease. 3. Mild bilateral hydronephrosis. This could be correlated with renal ultrasound, as indicated. Reported By:
[2016-08-22] MEDS: SNACK - Diabetic Appropriate PO SCH (20:07)
[2016-08-22] MEDS: LEVEMIR SC SCH (20:42)
[2016-08-22] MEDS: LASIX IVP SCH (22:59)
[2016-08-23] MEDS: DUONEB 0.5 MG/3 MG NEB SCH ×2 (05:46→11:41)
[2016-08-23 06:13] LABS: BASOPHILS # (AUTO) 0.1 X10^3/uL (0.0-0.1); BASOPHILS % (AUTO) 0.7 % (0.2-1.0); EOSINOPHILS # (AUTO) 0.2 x10^3/uL (0.0-0.2); EOSINOPHILS % (AUTO) 2.7 % (0.9-2.9); HEMATOCRIT 29.3 % (42.0-54.0); HEMOGLOBIN 9.4 g/dL (13.5-18.0); LYMPHOCYTES # (AUTO) 0.6 X10^3/uL (1.3-2.9); LYMPHOCYTES % (AUTO) 7.4 % (21.0-51.0); MEAN CORPUSCULAR HEMOGLOBIN 29.5 pg (27.0-34.0); MEAN CORPUSCULAR HGB CONC 32.1 g/dL (33.0-35.0); MEAN CORPUSCULAR VOLUME 91.7 fL (80.0-100.0); MEAN PLATELET VOLUME 8.7 fL (7.4-11.0); MONOCYTES # (AUTO) 0.6 x10^3/uL (0.3-0.8); MONOCYTES % (AUTO) 7.8 % (0.0-13.0); NEUTROPHILS # (AUTO) 6.7 x10^3/uL (2.2-4.8); NEUTROPHILS % (AUTO) 81.4 % (42.0-75.0); PLATELET COUNT 172 X10^3/uL (150.0-450.0); RED BLOOD COUNT 3.19 X10^6/uL (4.7-6.0); RED CELL DISTRIBUTION WIDTH 18.3 % (11.6-16.5); WHITE BLOOD COUNT 8.3 X10^3/uL (3.6-10.0)
[2016-08-23 06:44] LABS: ALANINE AMINOTRANSFERASE 93 Units/L (12-78); ALBUMIN 2.4 g/dL (3.4-5.0); ALKALINE PHOSPHATASE 316 Units/L (46-116); ASPARTATE AMINO TRANSFERASE 66 Units/L (15-37); BLOOD UREA NITROGEN 98 mg/dL (7-18); CALCIUM 8.7 mg/dL (8.5-10.1); CARBON DIOXIDE 35.2 mmol/L (21-32); CHLORIDE 108 mmol/L (98-107); CREATININE 2.87 mg/dL (0.70-1.30); GLUCOSE 108 mg/dL (65-99); MAGNESIUM 2.7 mg/dL (1.7-2.9); TOTAL PROTEIN 6.8 g/dL (6.4-8.2); eGFR BLACK RACES 28 (>60); eGFR NON BLACK RACES 23 (>60)
[2016-08-23 06:56] LABS: SODIUM 150 mmol/L (136-145)
--- NOTE | 2016-08-23 08:45 | RAD ---
HISTORY: RESPIRATORY DISTRESS Study: Single view of the chest. Comparison: 08/22/2016 Findings: Mild cardiomegaly with bilateral hilar interstitial prominence. No focal consolidations, pleural eff usions or pneumothorax. Osseous structures demonstrate no acute abnormality. IMPRESSION: 1. Bilateral but primarily left-sided interstitial prominence which may represent atypical infectio n in the correct clinical setting. Reported By:
[2016-08-23 09:50] LABS: FREE T4 (FREE THYROXINE) 0.97 ng/dL (0.76-1.46); TSH (3RD GENERATION) 24.17 uIU/mL (0.358-3.74)
[2016-08-23] MEDS: PROSCAR PO SCH (09:53)
[2016-08-23] MEDS: PREDNISONE TAB 5 MG PO SCH (09:53)
[2016-08-23] MEDS: PEPCID TAB 20 MG PEG SCH (09:53)
[2016-08-23] MEDS: BACTROBAN CREAM TOP SCH ×2 (09:54→20:30)
[2016-08-23] MEDS: LASIX IVP SCH ×2 (09:55→20:30)
[2016-08-23] MEDS: NICODERM PATCH 21 MG/24 HR TD SCH (09:56)
[2016-08-23] MEDS: CHECK PATCH XX SCH ×2 (09:56→20:31)
--- NOTE | 2016-08-23 15:21 | PCM.PROG ---
Progress Note - Progress Note for Day of Date: 08/22/16 - Subjective Subjective: 76-year-old white male admitted with acute hypoxia secondary to chronic respiratory failure presumably initiated due to recurrent aspiration. 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 Patient's general health has progressively to count declined, patient's spouse refuses hospice care at this time. Patient currently on IV antibiotics for. Pneumonia, we'll continue Lasix therapy and repeat a.m. labs. repeat am labs, continue cardiac monitoring and trilogy. - Past Medical Family Social History Past Med/Fam/Surg Hx: No changes since H&P Allergies: Allergies Budesonide [From Symbicort] Allergy (Verified 04/11/16 13:00) Cefdinir Allergy (Verified 04/11/16 13:00) Celecoxib [From Celebrex] Allergy (Verified 04/11/16 13:00) Erythromycin Allergy (Verified 04/11/16 13:00) Finasteride [From Proscar] Allergy (Verified 04/11/16 13:00) Formoterol [From Symbicort] Allergy (Verified 04/11/16 13:00) Glimepiride [From Amaryl] Allergy (Verified 04/11/16 13:00) Hydroxychloroquine [From Plaquenil] Allergy (Verified 04/11/16 13:00) Hyoscyamine [From Uroblue] Allergy (Verified 04/11/16 13:00) Immune Globulin [From Gammagard] Allergy (Verified 04/11/16 13:00) Leflunomide [From Arava] Allergy (Verified 04/11/16 13:00) Lidocaine Allergy (Verified 04/11/16 13:03) when used in magic mouthwash Losartan Allergy (Verified 04/11/16 13:00) Methenamine [From Uroblue] Allergy (Verified 04/11/16 13:00) Minocycline Allergy (Verified 04/11/16 13:00) Penicillins Allergy (Verified 04/11/16 13:00) Phenylsalicylate [From Uroblue] Allergy (Verified 04/11/16 13:00) Pregabalin [From Lyrica] Allergy (Verified 04/11/16 13:00) Pseudoephedrine Allergy (Verified 04/11/16 13:00) Rofecoxib [From Vioxx] Allergy (Verified 04/11/16 13:00) Sertraline [From Zoloft] Allergy (Verified 04/11/16 13:00) Sodium Phosphate [From Uroblue] Allergy (Verified 04/11/16 13:00) Spironolactone Allergy (Verified 04/11/16 13:00) Sulfa Antibiotics Allergy (Verified 04/11/16 13:00) - Review of Systems ROS: No change since H&P - Vital Signs and I&O's Vital Signs: Temperature 97.2 F Pulse Rate [Apical] 82 Pulse Rate 86 Respiratory Rate 57 Blood Pressure [Left Calf] 88/42 Blood Pressure [Right Calf] 109/72 Blood Pressure [Left Arm] 90/71 Blood Pressure [Right Arm] 100/54 Blood Pressure 90/71 O2 Sat by Pulse Oximetry 96 Intake and Output: Intake & Output 08/21/16 08/22/16 08/23/16 08/24/16 11:59 11:59 11:59 11:59 Intake Total 116 025 2589 Balance 576 160 5186 - Physical Exam Oriented: Person Eyes: Redness Ear: Normal Nose: Normal Throat: Normal Respiratory: Diminished, Rhonchi Cardiovascular: Normal : Normal Auscultation: Bowel Sounds: Normal Tenderness: Normal Skin: Decreased Turgur Musculoskeletal: Normal, Motor Deficit (diffuse muscle weakness), Sensory Deficit Speech Pattern: Aphasic - Laboratory and Diagnostics Result Diagrams: 08/23/16 04:35 08/23/16 04:35 Labs: 08/15/16 20:00 Blood Blood Culture - Final 08/16/16 08:23 Urine,Clean Catch Urine Culture - Final Laboratory WBC 8.3 X10^3/uL (3.6-10.0) 08/23/16 04:35 RBC 3.19 X10^6/uL (4.7-6.0) L 08/23/16 04:35 Hgb 9.4 g/dL (13.5-18.0) L 08/23/16 04:35 Hct 29.3 % (42.0-54.0) L 08/23/16 04:35 MCV 91.7 fL (80.0-100.0) 08/23/16 04:35 MCH 29.5 pg (27.0-34.0) 08/23/16 04:35 MCHC 32.1 g/dL (33.0-35.0) L 08/23/16 04:35 RDW 18.3 % (11.6-16.5) H 08/23/16 04:35 Plt Count 172 X10^3/uL (150.0-450.0) 08/23/16 04:35 Plt Count Comment Adequate (ADEQUATE) 08/15/16 20:00 MPV 8.7 fL (7.4-11.0) 08/23/16 04:35 Neut % 81.4 % (42.0-75.0) H 08/23/16 04:35 Lymph % 7.4 % (21.0-51.0) L 08/23/16 04:35 [place] % 7.8 % (0.0-13.0) 08/23/16 04:35 Eos % 2.7 % (0.9-2.9) 08/23/16 04:35 Baso % 0.7 % (0.2-1.0) 08/23/16 04:35 Neut # 6.7 x10^3/uL (2.2-4.8) H 08/23/16 04:35 Lymph # 0.6 X10^3/uL (1.3-2.9) L 08/23/16 04:35 [place] # 0.6 x10^3/uL (0.3-0.8) 08/23/16 04:35 Eos # 0.2 x10^3/uL (0.0-0.2) 08/23/16 04:35 Baso # 0.1 X10^3/uL (0.0-0.1) 08/23/16 04:35 Absolute Nucleated RBC 0.1 /100WBC 08/23/16 04:35 Total Counted 100 08/15/16 20:00 Neutrophils % (Manual) 81 % (39-76) H 08/15/16 20:00 Band Neutrophils % 10 % (0-10) 08/15/16 20:00 Lymphocytes % (Manual) 3 % (13-43) L 08/15/16 20:00 Monocytes % (Manual) 1 % (4-9) L 08/15/16 20:00 Atypical Lymphocytes 5 08/15/16 20:00 Plt Morphology Comment Normal (NORMAL) 08/15/16 20:00 RBC Morphology Abnormal (NORMAL) 08/15/16 20:00 Hypochromasia Slight A 08/15/16 20:00 Anisocytosis 1+ A 08/15/16 20:00 Sample Site Rrad 08/22/16 01:58 ABG pH 7.450 (7.35-7.45) 08/22/16 01:58 ABG pCO2 58.0 mmHg (35.0-45.0) H* 08/22/16 01:58 ABG pO2 48.0 mmHg (80.0-100.0) L* 08/22/16 01:58 ABG HCO3 40.3 mmol/L (22-26) H* 08/22/16 01:58 ABG O2 Saturation 85.0 % (90-100) L 08/22/16 01:58 ABG Base Excess 13.9 mmol/L (-2.0-2.0) H 08/22/16 01:58 Mariano Test Pos 08/22/16 01:58 A-a Gradient 108.0 mmHg 08/22/16 01:58 FiO2 32.000 08/22/16 01:58 Blood Gas Comments Dhara abg well-mtf 08/22/16 01:58 Sodium 150 mmol/L (136-145) H* 08/23/16 04:35 Corrected Sodium TNP 08/23/16 04:35 Potassium 4.4 mmol/L (3.5-5.1) 08/23/16 04:35 Chloride 108 mmol/L (98-107) H 08/23/16 04:35 Carbon Dioxide 35.2 mmol/L (21-32) H 08/23/16 04:35 BUN 98 mg/dL (7-18) H 08/23/16 04:35 Creatinine 2.87 mg/dL (0.70-1.30) H 08/23/16 04:35 Est GFR (MDRD) Af Amer 28 (>60) L 08/23/16 04:35 Est GFR (MDRD) Non-Af 23 (>60) L 08/23/16 04:35 Glucose 108 mg/dL (65-99) H 08/23/16 04:35 Calcium 8.7 mg/dL (8.5-10.1) 08/23/16 04:35 Corrected Calcium 10.0 mg/dL (8.5-10.1) 08/23/16 04:35 Magnesium 2.7 mg/dL (1.7-2.9) 08/23/16 04:35 Total Bilirubin 0.50 mg/dL (0.2-1.0) 08/23/16 04:35 AST 66 Units/L (15-37) H 08/23/16 04:35 ALT 93 Units/L (12-78) H 08/23/16 04:35 Alkaline Phosphatase 316 Units/L (46-116) H 08/23/16 04:35 Total Protein 6.8 g/dL (6.4-8.2) 08/23/16 04:35 Albumin 2.4 g/dL (3.4-5.0) L 08/23/16 04:35 Globulin 4.4 g/dL (2.5-4.5) 08/23/16 04:35 Albumin/Globulin Ratio 0.5 Ratio (1.1-2.1) L 08/23/16 04:35 Free T4 0.97 ng/dL (0.76-1.46) 08/23/16 04:35 TSH 3rd Generation 24.170 uIU/mL (0.358-3.74) H 08/23/16 04:35 Specimen Type Clean catch urine 08/15/16 22:46 Urine Color Yellow (YELLOW) 08/15/16 22:46 Urine Appearance Clear (CLEAR) 08/15/16 22:46 Urine pH 5.0 (5.0 - 8.0) 08/15/16 22:46 Ur Specific [place] 1.015 (1.000-1.030) 08/15/16 22:46 Urine Protein 1+ (NEGATIVE) 08/15/16 22:46 Urine Glucose (UA) Negative (NEGATIVE) 08/15/16 22:46 Urine Ketones Negative (NEGATIVE) 08/15/16 22:46 Urine Occult Blood Negative (NEGATIVE) 08/15/16 22:46 Urine Nitrite Negative (NEGATIVE) 08/15/16 22:46 Urine Bilirubin Negative (NEGATIVE) 08/15/16 22:46 Urine Urobilinogen Normal (NORMAL) 08/15/16 22:46 Ur Leukocyte Esterase Negative (NEGATIVE) 08/15/16 22:46 Urine RBC 0-3 /HPF (NEGATIVE) 08/15/16 22:46 Urine WBC 0-3 /HPF (NEGATIVE) 08/15/16 22:46 Ur Squamous Epith Cells Rare /HPF (NEGATIVE) 08/15/16 22:46 Amorphous Sediment 1+ /HPF (NEGATIVE) 08/15/16 22:46 Urine Bacteria Trace /HPF (NEGATIVE) 08/15/16 22:46 Ur Culture Indicated? No/not indicated 08/15/16 22:46 Blood Type A POSITIVE 08/20/16 10:25 Antibody Screen Negative 08/20/16 10:25 Crossmatch See Detail 08/20/16 10:25 - Plan (1) Respiratory distress Status: Acute Plan: IV HYDRATION, IV LASIX, RESP THERAPY. EKG MONTORING. REPEAT AM LABS, BS CONTROL, RESP CONSULT (2) CHF (congestive heart failure) Status: Chronic Qualifiers: Congestive heart failure type: C Congestive heart failure chronicity: C Plan: strict i & os. 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 (4) Diabetes mellitus Status: Chronic Qualifiers: Diabetes mellitus type: type 2 Diabetes mellitus complication status: D Diabetes mellitus complication detail: D Diabetic retinopathy severity: D Proliferative retinopathy type: P Diabetes mellitus macular edema: D Diabetes mellitus long-term insulin use: D Laterality: L Chronic kidney disease stage: C
--- NOTE | 2016-08-23 15:23 | PCM.PROG ---
Progress Note - Progress Note for Day of Date: 08/23/16 - Subjective Subjective: 76-year-old white male admitted with acute hypoxia secondary to chronic respiratory failure presumably initiated due to recurrent aspiration. 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 Patient's general health has progressively to count declined, patient's spouse refuses hospice care at this time. Patient currently on IV antibiotics for. Pneumonia, CT CHEST performed on 08/22. we'll continue Lasix therapy and repeat a.m. labs. discussed in depth with spouse of multi-system failure. repeat am labs, continue cardiac monitoring and trilogy. - Past Medical Family Social History Past Med/Fam/Surg Hx: No changes since H&P Allergies: Allergies Budesonide [From Symbicort] Allergy (Verified 04/11/16 13:00) Cefdinir Allergy (Verified 04/11/16 13:00) Celecoxib [From Celebrex] Allergy (Verified 04/11/16 13:00) Erythromycin Allergy (Verified 04/11/16 13:00) Finasteride [From Proscar] Allergy (Verified 04/11/16 13:00) Formoterol [From Symbicort] Allergy (Verified 04/11/16 13:00) Glimepiride [From Amaryl] Allergy (Verified 04/11/16 13:00) Hydroxychloroquine [From Plaquenil] Allergy (Verified 04/11/16 13:00) Hyoscyamine [From Uroblue] Allergy (Verified 04/11/16 13:00) Immune Globulin [From Gammagard] Allergy (Verified 04/11/16 13:00) Leflunomide [From Arava] Allergy (Verified 04/11/16 13:00) Lidocaine Allergy (Verified 04/11/16 13:03) when used in magic mouthwash Losartan Allergy (Verified 04/11/16 13:00) Methenamine [From Uroblue] Allergy (Verified 04/11/16 13:00) Minocycline Allergy (Verified 04/11/16 13:00) Penicillins Allergy (Verified 04/11/16 13:00) Phenylsalicylate [From Uroblue] Allergy (Verified 04/11/16 13:00) Pregabalin [From Lyrica] Allergy (Verified 04/11/16 13:00) Pseudoephedrine Allergy (Verified 04/11/16 13:00) Rofecoxib [From Vioxx] Allergy (Verified 04/11/16 13:00) Sertraline [From Zoloft] Allergy (Verified 04/11/16 13:00) Sodium Phosphate [From Uroblue] Allergy (Verified 04/11/16 13:00) Spironolactone Allergy (Verified 04/11/16 13:00) Sulfa Antibiotics Allergy (Verified 04/11/16 13:00) - Review of Systems ROS: No change since H&P - Vital Signs and I&O's Vital Signs: Temperature 97.2 F Pulse Rate [Apical] 82 Pulse Rate 86 Respiratory Rate 57 Blood Pressure [Left Calf] 88/42 Blood Pressure [Right Calf] 109/72 Blood Pressure [Left Arm] 90/71 Blood Pressure [Right Arm] 100/54 Blood Pressure 90/71 O2 Sat by Pulse Oximetry 96 Intake and Output: Intake & Output 08/21/16 08/22/16 08/23/16 08/24/16 11:59 11:59 11:59 11:59 Intake Total 472 649 1667 Balance 592 380 1965 - Physical Exam Oriented: Person Eyes: Redness Ear: Normal Nose: Normal Throat: Normal Respiratory: Diminished, Rhonchi Cardiovascular: Normal : Normal Auscultation: Bowel Sounds: Normal Tenderness: Normal Skin: Decreased Turgur Musculoskeletal: Normal, Motor Deficit (diffuse muscle weakness), Sensory Deficit Speech Pattern: Aphasic - Laboratory and Diagnostics Result Diagrams: 08/23/16 04:35 08/23/16 04:35 Labs: 08/15/16 20:00 Blood Blood Culture - Final 08/16/16 08:23 Urine,Clean Catch Urine Culture - Final Laboratory WBC 8.3 X10^3/uL (3.6-10.0) 08/23/16 04:35 RBC 3.19 X10^6/uL (4.7-6.0) L 08/23/16 04:35 Hgb 9.4 g/dL (13.5-18.0) L 08/23/16 04:35 Hct 29.3 % (42.0-54.0) L 08/23/16 04:35 MCV 91.7 fL (80.0-100.0) 08/23/16 04:35 MCH 29.5 pg (27.0-34.0) 08/23/16 04:35 MCHC 32.1 g/dL (33.0-35.0) L 08/23/16 04:35 RDW 18.3 % (11.6-16.5) H 08/23/16 04:35 Plt Count 172 X10^3/uL (150.0-450.0) 08/23/16 04:35 Plt Count Comment Adequate (ADEQUATE) 08/15/16 20:00 MPV 8.7 fL (7.4-11.0) 08/23/16 04:35 Neut % 81.4 % (42.0-75.0) H 08/23/16 04:35 Lymph % 7.4 % (21.0-51.0) L 08/23/16 04:35 [place] % 7.8 % (0.0-13.0) 08/23/16 04:35 Eos % 2.7 % (0.9-2.9) 08/23/16 04:35 Baso % 0.7 % (0.2-1.0) 08/23/16 04:35 Neut # 6.7 x10^3/uL (2.2-4.8) H 08/23/16 04:35 Lymph # 0.6 X10^3/uL (1.3-2.9) L 08/23/16 04:35 [place] # 0.6 x10^3/uL (0.3-0.8) 08/23/16 04:35 Eos # 0.2 x10^3/uL (0.0-0.2) 08/23/16 04:35 Baso # 0.1 X10^3/uL (0.0-0.1) 08/23/16 04:35 Absolute Nucleated RBC 0.1 /100WBC 08/23/16 04:35 Total Counted 100 08/15/16 20:00 Neutrophils % (Manual) 81 % (39-76) H 08/15/16 20:00 Band Neutrophils % 10 % (0-10) 08/15/16 20:00 Lymphocytes % (Manual) 3 % (13-43) L 08/15/16 20:00 Monocytes % (Manual) 1 % (4-9) L 08/15/16 20:00 Atypical Lymphocytes 5 04/06/17 20:00 Plt Morphology Comment Normal (NORMAL) 08/15/16 20:00 RBC Morphology Abnormal (NORMAL) 08/15/16 20:00 Hypochromasia Slight A 08/15/16 20:00 Anisocytosis 1+ A 08/15/16 20:00 Sample Site Rrad 08/22/16 01:58 ABG pH 7.450 (7.35-7.45) 08/22/16 01:58 ABG pCO2 58.0 mmHg (35.0-45.0) H* 08/22/16 01:58 ABG pO2 48.0 mmHg (80.0-100.0) L* 08/22/16 01:58 ABG HCO3 40.3 mmol/L (22-26) H* 08/22/16 01:58 ABG O2 Saturation 85.0 % (90-100) L 08/22/16 01:58 ABG Base Excess 13.9 mmol/L (-2.0-2.0) H 08/22/16 01:58 Mariano Test Pos 08/22/16 01:58 A-a Gradient 108.0 mmHg 08/22/16 01:58 FiO2 32.000 08/22/16 01:58 Blood Gas Comments Dhara abg well-mtf 08/22/16 01:58 Sodium 150 mmol/L (136-145) H* 08/23/16 04:35 Corrected Sodium TNP 08/23/16 04:35 Potassium 4.4 mmol/L (3.5-5.1) 08/23/16 04:35 Chloride 108 mmol/L (98-107) H 08/23/16 04:35 Carbon Dioxide 35.2 mmol/L (21-32) H 08/23/16 04:35 BUN 98 mg/dL (7-18) H 08/23/16 04:35 Creatinine 2.87 mg/dL (0.70-1.30) H 08/23/16 04:35 Est GFR (MDRD) Af Amer 28 (>60) L 08/23/16 04:35 Est GFR (MDRD) Non-Af 23 (>60) L 08/23/16 04:35 Glucose 108 mg/dL (65-99) H 08/23/16 04:35 Calcium 8.7 mg/dL (8.5-10.1) 08/23/16 04:35 Corrected Calcium 10.0 mg/dL (8.5-10.1) 08/23/16 04:35 Magnesium 2.7 mg/dL (1.7-2.9) 08/23/16 04:35 Total Bilirubin 0.50 mg/dL (0.2-1.0) 08/23/16 04:35 AST 66 Units/L (15-37) H 08/23/16 04:35 ALT 93 Units/L (12-78) H 08/23/16 04:35 Alkaline Phosphatase 316 Units/L (46-116) H 08/23/16 04:35 Total Protein 6.8 g/dL (6.4-8.2) 08/23/16 04:35 Albumin 2.4 g/dL (3.4-5.0) L 08/23/16 04:35 Globulin 4.4 g/dL (2.5-4.5) 08/23/16 04:35 Albumin/Globulin Ratio 0.5 Ratio (1.1-2.1) L 08/23/16 04:35 Free T4 0.97 ng/dL (0.76-1.46) 08/23/16 04:35 TSH 3rd Generation 24.170 uIU/mL (0.358-3.74) H 08/23/16 04:35 Specimen Type Clean catch urine 08/15/16 22:46 Urine Color Yellow (YELLOW) 08/15/16 22:46 Urine Appearance Clear (CLEAR) 08/15/16 22:46 Urine pH 5.0 (5.0 - 8.0) 08/15/16 22:46 Ur Specific [place] 1.015 (1.000-1.030) 08/15/16 22:46 Urine Protein 1+ (NEGATIVE) 08/15/16 22:46 Urine Glucose (UA) Negative (NEGATIVE) 08/15/16 22:46 Urine Ketones Negative (NEGATIVE) 08/15/16 22:46 Urine Occult Blood Negative (NEGATIVE) 08/15/16 22:46 Urine Nitrite Negative (NEGATIVE) 08/15/16 22:46 Urine Bilirubin Negative (NEGATIVE) 08/15/16 22:46 Urine Urobilinogen Normal (NORMAL) 08/15/16 22:46 Ur Leukocyte Esterase Negative (NEGATIVE) 08/15/16 22:46 Urine RBC 0-3 /HPF (NEGATIVE) 08/15/16 22:46 Urine WBC 0-3 /HPF (NEGATIVE) 08/15/16 22:46 Ur Squamous Epith Cells Rare /HPF (NEGATIVE) 08/15/16 22:46 Amorphous Sediment 1+ /HPF (NEGATIVE) 08/15/16 22:46 Urine Bacteria Trace /HPF (NEGATIVE) 08/15/16 22:46 Ur Culture Indicated? No/not indicated 08/15/16 22:46 Blood Type A POSITIVE 08/20/16 10:25 Antibody Screen Negative 08/20/16 10:25 Crossmatch See Detail 08/20/16 10:25 - Plan (1) Respiratory distress Status: Acute Plan: IV HYDRATION, IV LASIX, RESP THERAPY. EKG MONTORING. REPEAT AM LABS, BS CONTROL, RESP CONSULT (2) CHF (congestive heart failure) Status: Chronic Qualifiers: Congestive heart failure type: C Congestive heart failure chronicity: C Plan: strict i & os. 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 (4) Diabetes mellitus Status: Chronic Qualifiers: Diabetes mellitus type: type 2 Diabetes mellitus complication status: D Diabetes mellitus complication detail: D Diabetic retinopathy severity: D Proliferative retinopathy type: P Diabetes mellitus macular edema: D Diabetes mellitus custodial insulin use: D Laterality: L Chronic kidney disease stage: C
[2016-08-23] MEDS: LACTINEX GRANULES PEG SCH (16:00)
[2016-08-23] MEDS: DUONEB 0.5 MG/3 MG NEB PRN ×2 (16:41→21:03)
[2016-08-23] MEDS: SYNTHROID 125 mcg TAB PEG SCH ×2 (18:02→18:03)
[2016-08-23] MEDS: NS 1/2 1000 ML IV 1,000 ML IV SCH (18:03)
[2016-08-23] MEDS: LEVEMIR SC SCH (20:29)
[2016-08-23] MEDS: SNACK - Diabetic Appropriate PO SCH (20:30)
[2016-08-23] MEDS: LEVAQUIN PREMIX IV 250 MG 250 MG/50 ML BAG IV SCH (20:30)
[2016-08-24] MEDS: DUONEB 0.5 MG/3 MG NEB SCH ×3 (00:24→12:28)
[2016-08-24] MEDS: TRANSDERM-SCOP TD SCH (02:10)
[2016-08-24] MEDS: DUONEB 0.5 MG/3 MG NEB PRN ×4 (04:50→20:49)
[2016-08-24 05:03] LABS: ABG BASE EXCESS 18.9 mmol/L (-2.0-2.0)
[2016-08-24 05:05] LABS: ABG ALLEN TEST POS; ABG HCO3 45.9 mmol/L (22-26)
[2016-08-24] MEDS: NS 1/2 1000 ML IV 1,000 ML IV SCH ×2 (05:57→18:11)
[2016-08-24 06:26] LABS: BASOPHILS % (AUTO) 0.6 % (0.2-1.0); EOSINOPHILS # (AUTO) 0.2 x10^3/uL (0.0-0.2); EOSINOPHILS % (AUTO) 1.9 % (0.9-2.9); HEMATOCRIT 28.1 % (42.0-54.0); HEMOGLOBIN 9.1 g/dL (13.5-18.0); LYMPHOCYTES # (AUTO) 0.5 X10^3/uL (1.3-2.9); LYMPHOCYTES % (AUTO) 6.5 % (21.0-51.0); MEAN CORPUSCULAR HEMOGLOBIN 29.4 pg (27.0-34.0); MEAN CORPUSCULAR HGB CONC 32.4 g/dL (33.0-35.0); MEAN CORPUSCULAR VOLUME 90.8 fL (80.0-100.0); MEAN PLATELET VOLUME 8.6 fL (7.4-11.0); MONOCYTES # (AUTO) 0.6 x10^3/uL (0.3-0.8); MONOCYTES % (AUTO) 7.6 % (0.0-13.0); NEUTROPHILS # (AUTO) 6.8 x10^3/uL (2.2-4.8); NEUTROPHILS % (AUTO) 83.4 % (42.0-75.0); PLATELET COUNT 166 X10^3/uL (150.0-450.0); RED CELL DISTRIBUTION WIDTH 18.1 % (11.6-16.5); WHITE BLOOD COUNT 8.2 X10^3/uL (3.6-10.0)
[2016-08-24 06:32] LABS: ALBUMIN 2.3 g/dL (3.4-5.0); CALCIUM 8.4 mg/dL (8.5-10.1); CARBON DIOXIDE 37.3 mmol/L (21-32); COR CA(FOR HYPOALB) 9.8 mg/dL (8.5-10.1); CREATININE 2.95 mg/dL (0.70-1.30); TOTAL PROTEIN 6.5 g/dL (6.4-8.2)
[2016-08-24] MEDS: PROSCAR PO SCH (09:10)
[2016-08-24] MEDS: LASIX IVP SCH ×2 (09:10→20:12)
[2016-08-24] MEDS: PEPCID TAB 20 MG PEG SCH (09:11)
[2016-08-24] MEDS: PREDNISONE TAB 5 MG PO SCH (09:11)
[2016-08-24] MEDS: CHECK PATCH XX SCH ×2 (09:12→20:12)
[2016-08-24] MEDS: NICODERM PATCH 21 MG/24 HR TD SCH (09:13)
[2016-08-24] MEDS: BACTROBAN CREAM TOP SCH ×2 (09:13→20:13)
[2016-08-24] MEDS: LACTINEX GRANULES PEG SCH ×2 (16:15→17:43)
[2016-08-24] MEDS: SYNTHROID 125 mcg TAB PEG SCH (17:49)
[2016-08-24] MEDS ORDERED: NS 1/2 1000 ML IV 1,000 ML IV ONE (18:10)
[2016-08-24] MEDS: SNACK - Diabetic Appropriate PO SCH (19:48)
[2016-08-24] MEDS: LEVEMIR SC SCH (20:12)
[2016-08-25] MEDS: DUONEB 0.5 MG/3 MG NEB SCH ×4 (00:24→12:06)
[2016-08-25] MEDS: DUONEB 0.5 MG/3 MG NEB PRN ×4 (04:27→21:32)
[2016-08-25] MEDS: NS 1/2 1000 ML IV 1,000 ML IV SCH (06:02)
[2016-08-25 06:46] LABS: BASOPHILS % (AUTO) 0.5 % (0.2-1.0); EOSINOPHILS # (AUTO) 0.1 x10^3/uL (0.0-0.2); EOSINOPHILS % (AUTO) 1.8 % (0.9-2.9); HEMATOCRIT 30.3 % (42.0-54.0); HEMOGLOBIN 9.8 g/dL (13.5-18.0); LYMPHOCYTES # (AUTO) 0.6 X10^3/uL (1.3-2.9); LYMPHOCYTES % (AUTO) 7.6 % (21.0-51.0); MEAN CORPUSCULAR HEMOGLOBIN 29.5 pg (27.0-34.0); MEAN CORPUSCULAR HGB CONC 32.4 g/dL (33.0-35.0); MEAN CORPUSCULAR VOLUME 90.9 fL (80.0-100.0); MEAN PLATELET VOLUME 8.5 fL (7.4-11.0); MONOCYTES # (AUTO) 0.6 x10^3/uL (0.3-0.8); MONOCYTES % (AUTO) 7.3 % (0.0-13.0); NEUTROPHILS # (AUTO) 6.6 x10^3/uL (2.2-4.8); NEUTROPHILS % (AUTO) 82.8 % (42.0-75.0); PLATELET COUNT 171 X10^3/uL (150.0-450.0); RED BLOOD COUNT 3.33 X10^6/uL (4.7-6.0); RED CELL DISTRIBUTION WIDTH 18.2 % (11.6-16.5)
[2016-08-25 06:51] LABS: ALBUMIN 2.4 g/dL (3.4-5.0); CALCIUM 8.5 mg/dL (8.5-10.1); CARBON DIOXIDE 39.2 mmol/L (21-32); COR CA(FOR HYPOALB) 9.8 mg/dL (8.5-10.1); CREATININE 3.12 mg/dL (0.70-1.30)
[2016-08-25] MEDS: LASIX IVP SCH ×2 (09:01→20:18)
[2016-08-25] MEDS: PEPCID TAB 20 MG PEG SCH (09:01)
[2016-08-25] MEDS: CHECK PATCH XX SCH ×2 (09:02→23:12)
[2016-08-25] MEDS: PREDNISONE TAB 5 MG PO SCH (09:02)
[2016-08-25] MEDS: PROSCAR PO SCH (09:02)
[2016-08-25] MEDS: NICODERM PATCH 21 MG/24 HR TD SCH (09:02)
[2016-08-25] MEDS: BACTROBAN CREAM TOP SCH (09:03)
--- NOTE | 2016-08-25 17:54 | RAD ---
HISTORY: respiratory distress Study: Portable AP chest Comparison: 08/23/2016 Findings: The heart is normal. The pulmonary vessels are less prominent centrally. The lungs are hypoinflated . There are hazy bibasilar interstitial opacities which have decreased. The lungs are hypoinflated w ith no obvious effusion. IMPRESSION: Resolving pulmonary congestion and decreasing bibasilar interstitial opacities. Reported By:
[2016-08-25] MEDS: SYNTHROID 125 mcg TAB PEG SCH (18:27)
[2016-08-25] MEDS: LEVAQUIN PREMIX IV 250 MG 250 MG/50 ML BAG IV SCH (20:18)
[2016-08-25] MEDS: LEVEMIR SC SCH (23:09)
[2016-08-26] MEDS: DUONEB 0.5 MG/3 MG NEB SCH ×4 (00:57→15:55)
[2016-08-26] MEDS: NS 1/2 1000 ML IV 1,000 ML IV SCH (02:21)
[2016-08-26] MEDS: BACTROBAN CREAM TOP SCH ×2 (02:22→09:39)
[2016-08-26] MEDS: DUONEB 0.5 MG/3 MG NEB PRN ×2 (04:07→08:22)
[2016-08-26 05:06] LABS: CALCIUM 8.3 mg/dL (8.5-10.1); CARBON DIOXIDE 39.9 mmol/L (21-32); CREATININE 2.99 mg/dL (0.70-1.30)
[2016-08-26 05:08] LABS: BASOPHILS # (AUTO) 0.1 X10^3/uL (0.0-0.1); BASOPHILS % (AUTO) 0.6 % (0.2-1.0); EOSINOPHILS # (AUTO) 0.2 x10^3/uL (0.0-0.2); EOSINOPHILS % (AUTO) 1.8 % (0.9-2.9); HEMATOCRIT 28.4 % (42.0-54.0); HEMOGLOBIN 9.3 g/dL (13.5-18.0); LYMPHOCYTES # (AUTO) 0.6 X10^3/uL (1.3-2.9); LYMPHOCYTES % (AUTO) 7.3 % (21.0-51.0); MEAN CORPUSCULAR HEMOGLOBIN 29.6 pg (27.0-34.0); MEAN CORPUSCULAR HGB CONC 32.7 g/dL (33.0-35.0); MEAN CORPUSCULAR VOLUME 90.5 fL (80.0-100.0); MEAN PLATELET VOLUME 8.6 fL (7.4-11.0); MONOCYTES # (AUTO) 0.6 x10^3/uL (0.3-0.8); MONOCYTES % (AUTO) 7.1 % (0.0-13.0); NEUTROPHILS % (AUTO) 83.2 % (42.0-75.0); PLATELET COUNT 160 X10^3/uL (150.0-450.0); RED BLOOD COUNT 3.14 X10^6/uL (4.7-6.0); RED CELL DISTRIBUTION WIDTH 18.2 % (11.6-16.5); WHITE BLOOD COUNT 8.4 X10^3/uL (3.6-10.0)
[2016-08-26 05:16] LABS: MAGNESIUM 2.6 mg/dL (1.7-2.9)
[2016-08-26] MEDS: SNACK - Diabetic Appropriate PO SCH (06:45)
--- NOTE | 2016-08-26 06:52 | RAD ---
HISTORY: Respiratory distress Study: Chest one view Comparison: August 25, 2016, August 23, 2016 Findings: The heart is within normal limits in size. The genna are normal. The aorta is calcified. The lungs ar e hypoinflated but free of acute infiltrates. No pleural effusions are identified. Bony thorax is un remarkable with the exception of chronic rotator cuff disease on the left. IMPRESSION: Lungs hypoinflated but clear Reported By:
[2016-08-26] MEDS: PROSCAR PO SCH (09:37)
[2016-08-26] MEDS: LASIX IVP SCH (09:37)
[2016-08-26] MEDS: NICODERM PATCH 21 MG/24 HR TD SCH (09:37)
[2016-08-26] MEDS: CHECK PATCH XX SCH (09:38)
[2016-08-26] MEDS: PREDNISONE TAB 5 MG PO SCH (09:38)
[2016-08-26] MEDS: PEPCID TAB 20 MG PEG SCH (09:38)
[2016-08-26 16:12] VITALS: BP 96/60
[2016-08-26] MEDS: LACTINEX GRANULES PEG SCH (16:13)
--- NOTE | 2016-08-27 08:46 | PCM.DCPLAN ---
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 [LANTISEPTIC OINT *] 1 applic TOP DAILY PRN 08/15/16 [ History] Aspirin [[place] Low Dose] 81 mg PO DAILY 08/16/16 [History] Fluconazole [DIFLUCAN TAB 100 MG *] 100 mg PEG DAILY 08/16/16 [History] Mouthwashes [Biotene Dry Mouth Mouthwa] 1 applic PO PRN PRN 08/16/16 [History] Potassium Chloride Liq [POTASSIUM CHLORIDE LIQ 20 mEQ/15 mL *] 20 meq PEG DAILY PRN 08/16/16 [History] Scopolamine [TRANSDERM-SCOP PATCH - Do NOT cut *] 1 patch TD .Q 72 HRS 08/16/16 [History] Doxycycline Hyclate [Vibramycin] 100 mg PO BID #20 cap 08/26/16 [Rx] Ipratropium/Albuterol Nebule [DUONEB 0.5 MG/3 MG NEBULE *] 1 ea NEB Q6RESP each 08/26/16 [Rx] Lactobacillus [LACTINEX GRANULES MARY *] 1 mary PEG 1600 packet 08/26/16 [Rx] Prednisone [PREDNISONE TAB 5 MG *] 15 mg PO DAILY tab 08/26/16 [Rx] - Hospital Course Vital Signs: Temperature 97.4 F Pulse Rate [Apical] 91 Pulse Rate 98 Respiratory Rate 56 Blood Pressure [Left Calf] 88/42 Blood Pressure [Right Calf] 109/72 Blood Pressure [Left Arm] 90/71 Blood Pressure [Right Arm] 96/60 Blood Pressure 90/71 O2 Sat by Pulse Oximetry 100 Latest Lab Results: Laboratory Last Values WBC 8.4 X10^3/uL (3.6-10.0) 08/26/16 04:20 RBC 3.14 X10^6/uL (4.7-6.0) L 08/26/16 04:20 Hgb 9.3 g/dL (13.5-18.0) L 08/26/16 04:20 Hct 28.4 % (42.0-54.0) L 08/26/16 04:20 MCV 90.5 fL (80.0-100.0) 08/26/16 04:20 MCH 29.6 pg (27.0-34.0) 08/26/16 04:20 MCHC 32.7 g/dL (33.0-35.0) L 08/26/16 04:20 RDW 18.2 % (11.6-16.5) H 08/26/16 04:20 Plt Count 160 X10^3/uL (150.0-450.0) 08/26/16 04:20 Plt Count Comment Adequate (ADEQUATE) 08/15/16 20:00 MPV 8.6 fL (7.4-11.0) 08/26/16 04:20 Neut % 83.2 % (42.0-75.0) H 08/26/16 04:20 Lymph % 7.3 % (21.0-51.0) L 08/26/16 04:20 [place] % 7.1 % (0.0-13.0) 08/26/16 04:20 Eos % 1.8 % (0.9-2.9) 08/26/16 04:20 Baso % 0.6 % (0.2-1.0) 08/26/16 04:20 Neut # 7.0 x10^3/uL (2.2-4.8) H 08/26/16 04:20 Lymph # 0.6 X10^3/uL (1.3-2.9) L 08/26/16 04:20 [place] # 0.6 x10^3/uL (0.3-0.8) 08/26/16 04:20 Eos # 0.2 x10^3/uL (0.0-0.2) 08/26/16 04:20 Baso # 0.1 X10^3/uL (0.0-0.1) 08/26/16 04:20 Absolute Nucleated RBC 0.1 /100WBC 08/26/16 04:20 Total Counted 100 08/15/16 20:00 Neutrophils % (Manual) 81 % (39-76) H 08/15/16 20:00 Band Neutrophils % 10 % (0-10) 08/15/16 20:00 Lymphocytes % (Manual) 3 % (13-43) L 08/15/16 20:00 Monocytes % (Manual) 1 % (4-9) L 08/15/16 20:00 Atypical Lymphocytes 5 08/15/16 20:00 Plt Morphology Comment Normal (NORMAL) 08/15/16 20:00 RBC Morphology Abnormal (NORMAL) 08/15/16 20:00 Hypochromasia Slight A 08/15/16 20:00 Anisocytosis 1+ A 08/15/16 20:00 Sample Site Rr 08/24/16 04:58 ABG pH 7.470 (7.35-7.45) H 08/24/16 04:58 ABG pCO2 63.0 mmHg (35.0-45.0) H* 08/24/16 04:58 ABG pO2 60.0 mmHg (80.0-100.0) L 08/24/16 04:58 ABG HCO3 45.9 mmol/L (22-26) H* 08/24/16 04:58 ABG O2 Saturation 92.0 % (90-100) 08/24/16 04:58 ABG Base Excess 18.9 mmol/L (-2.0-2.0) H 08/24/16 04:58 Mariano Test Pos 08/24/16 04:58 A-a Gradient 89.0 mmHg 08/24/16 04:58 FiO2 32.000 08/24/16 04:58 Blood Gas Comments Dhara well ae 08/24/16 04:58 Sodium 151 mmol/L (136-145) H* 08/26/16 04:20 Corrected Sodium 151 mmol/L (136-145) H 08/26/16 04:20 Potassium 4.3 mmol/L (3.5-5.1) 08/26/16 04:20 Chloride 106 mmol/L (98-107) 08/26/16 04:20 Carbon Dioxide 39.9 mmol/L (21-32) H 08/26/16 04:20 BUN 103 mg/dL (7-18) H 08/26/16 04:20 Creatinine 2.99 mg/dL (0.70-1.30) H 08/26/16 04:20 Est GFR (MDRD) Af Amer 26 (>60) L 08/26/16 04:20 Est GFR (MDRD) Non-Af 22 (>60) L 08/26/16 04:20 Glucose 117 mg/dL (65-99) H 08/26/16 04:20 Calcium 8.3 mg/dL (8.5-10.1) L 08/26/16 04:20 Corrected Calcium 9.8 mg/dL (8.5-10.1) 08/25/16 06:20 Magnesium 2.6 mg/dL (1.7-2.9) 08/26/16 04:20 Total Bilirubin 0.50 mg/dL (0.2-1.0) 08/25/16 06:20 AST 57 Units/L (15-37) H 08/25/16 06:20 ALT 79 Units/L (12-78) H 08/25/16 06:20 Alkaline Phosphatase 319 Units/L (46-116) H 08/25/16 06:20 Total Protein 7.0 g/dL (6.4-8.2) 08/25/16 06:20 Albumin 2.4 g/dL (3.4-5.0) L 08/25/16 06:20 Globulin 4.6 g/dL (2.5-4.5) H 08/25/16 06:20 Albumin/Globulin Ratio 0.5 Ratio (1.1-2.1) L 08/25/16 06:20 Free T4 0.97 ng/dL (0.76-1.46) 08/23/16 04:35 TSH 3rd Generation 24.170 uIU/mL (0.358-3.74) H 08/23/16 04:35 Specimen Type Clean catch urine 08/15/16 22:46 Urine Color Yellow (YELLOW) 08/15/16 22:46 Urine Appearance Clear (CLEAR) 08/15/16 22:46 Urine pH 5.0 (5.0 - 8.0) 08/15/16 22:46 Ur Specific [place] 1.015 (1.000-1.030) 08/15/16 22:46 Urine Protein 1+ (NEGATIVE) 04 22:46 Urine Glucose (UA) Negative (NEGATIVE) 08/15/16 22:46 Urine Ketones Negative (NEGATIVE) 08/15/16 22:46 Urine Occult Blood Negative (NEGATIVE) 08/15/16 22:46 Urine Nitrite Negative (NEGATIVE) 08/15/16 22:46 Urine Bilirubin Negative (NEGATIVE) 08/15/16 22:46 Urine Urobilinogen Normal (NORMAL) 08/15/16 22:46 Ur Leukocyte Esterase Negative (NEGATIVE) 08/15/16 22:46 Urine RBC 0-3 /HPF (NEGATIVE) 08/15/16 22:46 Urine WBC 0-3 /HPF (NEGATIVE) 08/15/16 22:46 Ur Squamous Epith Cells Rare /HPF (NEGATIVE) 08/15/16 22:46 Amorphous Sediment 1+ /HPF (NEGATIVE) 08/15/16 22:46 Urine Bacteria Trace /HPF (NEGATIVE) 08/15/16 22:46 Ur Culture Indicated? No/not indicated 08/15/16 22:46 Blood Type A POSITIVE 08/20/16 10:25 Antibody Screen Negative 08/20/16 10:25 Crossmatch See Detail 08/20/16 10:25 Hospital Course: Patient is a 76-year-old white male who was admitted to [facility] on August 15 with hypoxemia, altered mental status secondary to acute on chronic respiratory failure, acute on chronic COPD disease with exacerbation. In acute congestive heart failure exacerbation. Patient appears to have bronchitis with probable underlying pneumonia. Patient was admitted to ICU for further evaluation of respiratory illness. After an extended stay patient blood cultures remain negative patient's sputum culture was collected 2 separate times , the latter specimen results pending. including Levaquin. Patient also received IV Lasix for diuretic therapy for bilateral. Pleural effusions, and IV steroids with gradual improvement noted. Patient did show gram-negative rods on preliminary sputum patient was discharged home on doxycycline twice a day until culture results are final. After an extended stay at the [facility] in ICU patient's labs returned to baseline ABG returned patient's baseline. Patient's family informed of progressive disease processes in multiorgan failure/decline. Family member refused end-of-life care such as hospice. extensive discussions with patient's spouse about diagnostic tests and laboratory findings on a daily basis. Usually 30-45 minutes spent in the room with patient and family on a daily basis while inpatient. Patient was set up for home health care with physical therapy 3 times a week. Patient to resume all home medications and tube feedings as prior to admission. Patient will need a repeat CBC and CMP in one to 2 weeks to be collected by home health. Patient to follow-up with primary care as scheduled. Patient to resume Trilogy Sabiha and albuterol treatments every 6 hours as needed. - Discharge Plan Disposition: HOME, SELF-CARE Condition: Stable Prescriptions: Doxycycline Hyclate [Vibramycin] 100 mg PO BID #20 cap - Follow ups/Referrals Follow ups/Referrals: SKY JAVIER [Primary Care Provider] - - Instructions Instructions: Type 2 Diabetes Mellitus, Adult, Shortness of Breath, Easy-to- Read, Acute Respiratory Distress Syndrome, Doxycycline tablets or capsules, Upper Respiratory Infection, Adult, [id number], Heart Failure, [id number] Forms: Patient Portal
== END 2016-08-26 17:25 | disposition home health service (06) | DRG 314 ==
LOC: ICU 17:15
PROVIDERS: ADMIT Internal Medicine; ATTEND Internal Medicine
PROC: 30233N1 Transfusion of Nonautologous Red Blood Cells into Peripheral Vein, Percutaneous Approach (ICD-10-PCS; principal; 2016-08-20)
DX: R09.89 Other specified symptoms and signs involving the circulatory and respiratory systems (principal); R41.82 Altered mental status, unspecified; G37.8 Other specified demyelinating diseases of central nervous system; J96.01 Acute respiratory failure with hypoxia; R06.09 Other forms of dyspnea; J96.11 Chronic respiratory failure with hypoxia; I12.9 Hypertensive chronic kidney disease with stage 1 through stage 4 chronic kidney disease, or unspecified chronic kidney disease; M13.89 Other specified arthritis, multiple sites; B96.5 Pseudomonas (aeruginosa) (mallei) (pseudomallei) as the cause of diseases classified elsewhere; B95.62 Methicillin resistant Staphylococcus aureus infection as the cause of diseases classified elsewhere; I50.9 Heart failure, unspecified; J44.1 Chronic obstructive pulmonary disease with (acute) exacerbation; J20.8 Acute bronchitis due to other specified organisms; J18.1 Lobar pneumonia, unspecified organism; N17.8 Other acute kidney failure; N18.9 Chronic kidney disease, unspecified; E87.0 Hyperosmolality and hypernatremia; J90 Pleural effusion, not elsewhere classified; R06.00 Dyspnea, unspecified; R13.11 Dysphagia, oral phase; Z93.1 Gastrostomy status; Z78.1 Physical restraint status
CPT/HCPCS: 36415; 36430; 36600; 71010; 71250; 80048; 80053; 81001; 82803; 83735; 84439; 84443; 85014; 85018; 85025; 86850; 86900; 86901; 86920; 86921; 86922; 87040; 87070; 87077; 87086; 87186; 87205; 92523; 93005; 93010; 94640; 94660; 99231; A4222; A4618; A7030; P9016; S0138; 1956; J0692; J1940; J1956; J2920; J7506; J7620

== ENCOUNTER 2016-09-07 11:11 | Emergency (ER) | payer OTHER ==
--- NOTE | 2016-09-07 11:20 | DR.ABDMALE ---
HPI - Reviewed Nurses Notes Review: Yes - Timing Came on: Suddenly PMH - PMH Past Medical History: Arthritis, Hypertension, Renal Disease Past Surgical History: Yes Surgical History: Cholecystectomy, Joint Replacement, Ortho Surgery - Family History Family Medical History: Diabetes Mellitus, [place], Sudden Cardiac PE - Vital Signs Vital Signs: Temp Pulse Resp BP BP BP BP 09/07/16 11:16 97.7 F 82 18 102/67 08/26/16 15:00 96/60 96/60 06/13/16 12:00 90/71 06/05/16 21:00 88/42 06/03/16 18:00 BP Pulse Ox 09/07/16 11:16 93 L 08/26/16 15:00 06/13/16 12:00 06/05/16 21:00 06/03/16 18:00 109/72 ROR - Labs Reviewed Result Diagrams: 09/07/16 11:40 09/07/16 11:40 Laboratory: WBC 6.4 X10^3/uL (3.6-10.0) 09/07/16 11:40 RBC 3.43 X10^6/uL (4.7-6.0) L 09/07/16 11:40 Hgb 10.0 g/dL (13.5-18.0) L 09/07/16 11:40 Hct 31.5 % (42.0-54.0) L 09/07/16 11:40 MCV 91.8 fL (80.0-100.0) 09/07/16 11:40 MCH 29.2 pg (27.0-34.0) 09/07/16 11:40 MCHC 31.8 g/dL (33.0-35.0) L 09/07/16 11:40 RDW 17.5 % (11.6-16.5) H 09/07/16 11:40 Plt Count 133 X10^3/uL (150.0-450.0) L 09/07/16 11:40 MPV 8.9 fL (7.4-11.0) 09/07/16 11:40 Neut % 77.5 % (42.0-75.0) H 09/07/16 11:40 Lymph % 9.5 % (21.0-51.0) L 09/07/16 11:40 [place] % 8.6 % (0.0-13.0) 09/07/16 11:40 Eos % 3.6 % (0.9-2.9) H 09/07/16 11:40 Baso % 0.8 % (0.2-1.0) 09/07/16 11:40 Neut # 5.0 x10^3/uL (2.2-4.8) H 09/07/16 11:40 Lymph # 0.6 X10^3/uL (1.3-2.9) L 09/07/16 11:40 [place] # 0.6 x10^3/uL (0.3-0.8) 09/07/16 11:40 Eos # 0.2 x10^3/uL (0.0-0.2) 09/07/16 11:40 Baso # 0.0 X10^3/uL (0.0-0.1) 09/07/16 11:40 Absolute Nucleated RBC 0.1 /100WBC 09/07/16 11:40 Sodium 150 mmol/L (136-145) H* 09/07/16 11:40 Corrected Sodium 151 mmol/L (136-145) H 09/07/16 11:40 Potassium 3.8 mmol/L (3.5-5.1) 09/07/16 11:40 Chloride 105 mmol/L (98-107) 09/07/16 11:40 Carbon Dioxide 42.3 mmol/L (21-32) H* 09/07/16 11:40 BUN 112 mg/dL (7-18) H 09/07/16 11:40 Creatinine 3.01 mg/dL (0.70-1.30) H 09/07/16 11:40 Est GFR (MDRD) Af Amer 26 (>60) L 09/07/16 11:40 Est GFR (MDRD) Non-Af 22 (>60) L 09/07/16 11:40 Glucose 133 mg/dL (65-99) H 09/07/16 11:40 Calcium 9.1 mg/dL (8.5-10.1) 09/07/16 11:40 Corrected Calcium 10.1 mg/dL (8.5-10.1) 09/07/16 11:40 Total Bilirubin 0.60 mg/dL (0.2-1.0) 09/07/16 11:40 AST 51 Units/L (15-37) H 09/07/16 11:40 ALT 58 Units/L (12-78) 09/07/16 11:40 Alkaline Phosphatase 241 Units/L (46-116) H 09/07/16 11:40 Creatine Kinase 15 Units/L (39-308) L 09/07/16 11:40 CK-MB (CK-2) 1.0 ng/mL (0-4.0) 09/07/16 11:40 CK/CKMB % Calc 6.7 % (<4) 09/07/16 11:40 Troponin I 0.06 ng/mL (0-1.5) 09/07/16 11:40 Total Protein 7.1 g/dL (6.4-8.2) 09/07/16 11:40 Albumin 2.7 g/dL (3.4-5.0) L 09/07/16 11:40 Globulin 4.4 g/dL (2.5-4.5) 09/07/16 11:40 Albumin/Globulin Ratio 0.6 Ratio (1.1-2.1) L 09/07/16 11:40 Specimen Type Catherized urine 09/07/16 11:49 Urine Color Yellow (YELLOW) 09/07/16 11:49 Urine Appearance Clear (CLEAR) 09/07/16 11:49 Urine pH 7.0 (5.0 - 8.0) 09/07/16 11:49 Ur Specific [place] 1.010 (1.000-1.030) 09/07/16 11:49 Urine Protein 2+ (NEGATIVE) 09/07/16 11:49 Urine Glucose (UA) Negative (NEGATIVE) 09/07/16 11:49 Urine Ketones Negative (NEGATIVE) 09/07/16 11:49 Urine Occult Blood Negative (NEGATIVE) 09/07/16 11:49 Urine Nitrite Negative (NEGATIVE) 09/07/16 11:49 Urine Bilirubin Negative (NEGATIVE) 09/07/16 11:49 Urine Urobilinogen Normal (NORMAL) 09/07/16 11:49 Ur Leukocyte Esterase Negative (NEGATIVE) 09/07/16 11:49 Urine RBC 0 /HPF (NEGATIVE) 09/07/16 11:49 Urine WBC 0-1 /HPF (NEGATIVE) 09/07/16 11:49 Ur Squamous Epith Cells Rare /HPF (NEGATIVE) 09/07/16 11:49 Amorphous Sediment Trace /HPF (NEGATIVE) 09/07/16 11:49 Urine Bacteria Negative /HPF (NEGATIVE) 09/07/16 11:49 Ur Culture Indicated? No/not indicated 09/07/16 11:49 - Diagnosis Discharge Problem: Guillain[place], Urinary retention - Discharge Plan Condition: Stable - Follow ups/Referrals Follow ups/Referrals: SKY JAVIER [Primary Care Provider] - 2 days - Instructions Instructions: Acute Urinary Retention, Male, Thompson Catheter Care, Adult, Easy- to-Read Additional Instructions: RETURN TO ED IF WORSE..
[2016-09-07 11:36] VITALS: BP 102/67; BMI 21.7
[2016-09-07 11:55] LABS: BILIRUBIN,URINE NEGATIVE (NEGATIVE); BLOOD/HEMOGLOBIN,URINE NEGATIVE (NEGATIVE); GLUCOSE, URINE NEGATIVE (NEGATIVE); KETONES,URINE NEGATIVE (NEGATIVE); LEUKOCYTE ESTERASE ,URINE NEGATIVE (NEGATIVE); NITRITES,URINE NEGATIVE (NEGATIVE); PROTEIN,URINE 2+ (NEGATIVE); UROBILINOGEN,URINE NORMAL (NORMAL)
[2016-09-07 11:56] LABS: BASOPHILS % (AUTO) 0.8 % (0.2-1.0); EOSINOPHILS # (AUTO) 0.2 x10^3/uL (0.0-0.2); EOSINOPHILS % (AUTO) 3.6 % (0.9-2.9); HEMATOCRIT 31.5 % (42.0-54.0); LYMPHOCYTES # (AUTO) 0.6 X10^3/uL (1.3-2.9); LYMPHOCYTES % (AUTO) 9.5 % (21.0-51.0); MEAN CORPUSCULAR HEMOGLOBIN 29.2 pg (27.0-34.0); MEAN CORPUSCULAR HGB CONC 31.8 g/dL (33.0-35.0); MEAN CORPUSCULAR VOLUME 91.8 fL (80.0-100.0); MEAN PLATELET VOLUME 8.9 fL (7.4-11.0); MONOCYTES # (AUTO) 0.6 x10^3/uL (0.3-0.8); MONOCYTES % (AUTO) 8.6 % (0.0-13.0); NEUTROPHILS % (AUTO) 77.5 % (42.0-75.0); PLATELET COUNT 133 X10^3/uL (150.0-450.0); RED BLOOD COUNT 3.43 X10^6/uL (4.7-6.0); RED CELL DISTRIBUTION WIDTH 17.5 % (11.6-16.5); WHITE BLOOD COUNT 6.4 X10^3/uL (3.6-10.0)
[2016-09-07 12:07] LABS: APPEARANCE,URINE CLEAR (CLEAR); COLOR,URINE YELLOW (YELLOW); RBC,URINE 0 /HPF (NEGATIVE)
[2016-09-07 12:08] LABS: AMORPHOUS SEDIMENT,UR TRACE /HPF (NEGATIVE); BACTERIA,URINE NEGATIVE /HPF (NEGATIVE); SQUAMOUS EPITHELIAL CELL,UR RARE /HPF (NEGATIVE)
[2016-09-07 12:35] LABS: ALBUMIN 2.7 g/dL (3.4-5.0); CALCIUM 9.1 mg/dL (8.5-10.1); CKMB % 6.7 % (<4); COR CA(FOR HYPOALB) 10.1 mg/dL (8.5-10.1); CREATININE 3.01 mg/dL (0.70-1.30); TOTAL PROTEIN 7.1 g/dL (6.4-8.2); TROPONIN I 0.06 ng/mL (0-1.5)
[2016-09-07 12:40] LABS: CARBON DIOXIDE 42.3 mmol/L (21-32)
--- NOTE | 2016-09-07 12:45 | CT ---
HISTORY: Abdominal pain Study: CT abdomen and pelvis without contrast Comparison: None available Technique: Multiple axial images of the abdomen and pelvis were obtained from the lung bases to the pubic symph ysis after the administration of IV contrast. Dose reduction techniques including Automated Exposur e Control (AEC) and adjustment of mA and kV were utilized. Findings: The visualized portions of the lung bases demonstrate subsegmental atelectasis of the right and left base with a minimal amount of pleural fluid noted on the right. The liver, spleen, pancreas, kidne ys, and adrenal glands are unremarkable in their CT appearance. The gallbladder is not visualized c onsistent with past surgical history of cholecystectomy. A gastrostomy tube is observed with the an terior aspect of the stomach approximating the anterior abdominal wall. A jejunostomy tube is obser amarilis extending through the duodenum into the proximal jejunum.. No significant mesenteric lymphadeno lito or stranding can be observed. No free fluid or free air is seen within the abdomen. No bowel wall thickening or bowel dilatation is present. The colon is unremarkable. Specifically, there is no diverticulosis noted within the sigmoid colon. The urinary bladder is largely decompressed seco ndary to the presence of a Thompson catheter. Significant streak artifact from left total hip arthropl asty is noted limiting evaluation of the pelvis. The bony structures are grossly intact. IMPRESSION: Minimal subsegmental atelectasis of the right and left base with a very small right-sided pleural ef fusion. Otherwise, essentially unremarkable evaluation of the abdomen and pelvis without contrast. Reported By:
--- NOTE | 2016-09-07 12:55 | RAD ---
HISTORY: Chest pain Study: Single-view chest Comparison: August 26, 2016 Findings: The trachea is midline. The cardiac silhouette is enlarged with a tortuous thoracic aorta. The pat gs are clear without focal infiltrate or effusion. The bony thorax is unremarkable. IMPRESSION: 1. No acute cardiopulmonary disease. Reported By:
== END 2016-09-07 16:45 | disposition home or self-care (01) ==
LOC: ER 11:11
DX: G61.0 Guillain-Barre syndrome (principal); R33.9 Retention of urine, unspecified
CPT/HCPCS: 36415; 51702; 71010; 74176; 80053; 81001; 82550; 82553; 84484; 85025; 93005; 93010; 99282; 99283